=== PATIENT | female | born 1970 | race Caucasian/White ===

== ENCOUNTER → 2016-11-16 | Outpatient (CLI) | payer OTHER ==
--- NOTE | 2016-11-16 12:11 | Diagnostic Imaging Report ---
PROCEDURE: US Thyroid. TECHNIQUE: Multiple real-time grayscale images were obtained of the thyroid in various projections. INDICATION: Enlarged thyroid. FINDINGS: The thyroid gland is heterogeneous with hypervascularity seen. There are nodules; the largest is 1.4 x 1.0 x 1.8 cm in the lower aspect of the right thyroid lobe with internal vascularity seen. Superior to it on the right side, there is a nodule associated with calcification measuring 0.8 x 0.7 x 0.8 cm. A nodule in the isthmus measuring 2.1 x 0.9 x 2.3 cm is also seen. IMPRESSION: Heterogeneous enlarged thyroid gland with multiple nodules seen likely related to multinodular goiter. Six month followup to reevaluate the nodules recommended. Dictated by: Dictated on workstation # [id number]
== END ==
LOC: RAD 10:03
PROVIDERS: ATTEND Nurse Practitioner Family
DX: E04.9 Nontoxic goiter, unspecified (principal)
CPT/HCPCS: 76536

== ENCOUNTER → 2017-05-17 | Outpatient (CLI) | payer OTHER ==
--- NOTE | 2017-05-17 12:10 | Diagnostic Imaging Report ---
PROCEDURE: US Thyroid. TECHNIQUE: Multiple real-time grayscale images were obtained of the thyroid in various projections. INDICATION: Thyroid nodules. Comparison with November 16, 2016. FINDINGS: Both lobes of thyroid are very heterogeneous and hypervascular in nature. Right lobe measures 5.2 x 1.8 x 1.5 cm. There are 2 nodules. Dominant nodule is inferior measuring 1.9 x 1.3 x 0.9 cm. Smaller calcified nodule in the upper portion measures 6 x 5 x 6 mm. Left lobe measures 5.8 x 2.3 x 2 cm. There is a nodule medially in the left lobe measuring 2.3 x 0.8 x 2.3 cm. IMPRESSION: Bilateral thyroid nodules which are stable in appearance when compared with 11/16/2016. Dictated by: Dictated on workstation # [id number]
== END ==
LOC: RAD 11:02
PROVIDERS: ATTEND Nurse Practitioner Family
DX: E04.2 Nontoxic multinodular goiter (principal)
CPT/HCPCS: 76536

== ENCOUNTER → 2018-05-30 | Outpatient (CLI) | payer OTHER ==
--- NOTE | 2018-05-30 08:54 | Diagnostic Imaging Report ---
PROCEDURE: US Thyroid. TECHNIQUE: Multiple real-time grayscale images were obtained of the thyroid in various projections. Followup thyroid nodule. Comparison is made with prior thyroid ultrasound from 05/17/2017. The right lobe of the thyroid measures 5.2 x 1.8 x 1.5 cm and left lobe measures 5.5 x 2.2 x 2.2 cm. Marked parenchymal heterogeneity is again noted. Bilateral thyroid nodules are again seen. The nodule in the midline at the isthmus measures 1.7 x 0.9 x 1.6 cm compared with 2.3 x 0.8 cm. A solid nodule in the right lobe lower pole measures 2.3 x 0.8 x 1.5 cm compared with 1.9 x 1.3 x 0.9 cm. Partially calcified nodule upper pole right lobe measures 0.7 x 1.0 cm compared with 0.5 x 0.6 cm. No other nodules are seen. IMPRESSION: Thyroid nodules, as described. Midline nodule has decreased slightly in size. Right lower pole nodule has increased slightly in size. No new abnormality seen. Continued followup is recommended. Dictated by: Dictated on workstation # [id number]
== END ==
LOC: RAD 07:57
PROVIDERS: ATTEND Nurse Practitioner Family
DX: E04.2 Nontoxic multinodular goiter (principal)
CPT/HCPCS: 76536

== ENCOUNTER 2018-08-12 09:54 | Outpatient (CLI) | payer OTHER ==
[~2018-08-12] VITALS: Ht 165.1 cm; Wt 75.7 kg
[2018-08-12] MEDS ORDERED: LEVO112T55 PO (09:56)
[2018-08-12] MEDS ORDERED: LISI10TA2 PO (09:56)
[2018-08-12] MEDS ORDERED: AMIT50TA3 PO (09:56)
== END 2018-08-12 10:12 | disposition home or self-care (01) ==
LOC: PREOP 09:54
PROVIDERS: ATTEND Surgery
DX: Z01.818 Encounter for other preprocedural examination (principal)

== ENCOUNTER 2018-08-15 05:59 | Day surgery (SDC) | payer OTHER ==
[~2018-08-15] VITALS: Ht 165.1 cm; Wt 75.7 kg
[~2018-08-15 05:59] MED LIST: AMIT50TA3 PO; LEVO112T55 PO; LISI10TA2 PO
--- OUTSIDE RECORDS SUMMARY | 2018-08-15 06:03 | XMS REPORT | CCD ---
Author Author Marie Flores MD, [facility] Address [address] [place] [address] Phone Care Team Providers Care Hog Killer Name Role Phone PP Unavailable CCM Unavailable Summary Purpose Interface Exchange Insurance Providers Payer name Policy type / Coverage type Covered alliance party ID Effective Begin Date Effective End Date [employer] [id number] Unknown Unknown Family History Family History data not found Social History Social History Element Codes Description Effective Dates Marital status Unknown carolynn 11/09/2016 Number of children Unknown 1 11/09/2016 Employment Unknown Currently employed 11/09/[address]: 2807871 Former smoker quit in 200311/09/[address]: 873604129 Never drinks alcohol 11/09/2016 Allergies, Adverse Reactions, Alerts Allergies, Adverse Reactions, Alerts data not found Past Medical History Illness Codes Condition Status Onset Date Resolved Date Essential (primary) hypertension ICD-9: 401.9 ICD-10: I10 Active 10/11/2017 Unknown Hypertension Unknown Active 10/11/2017 Unknown Gastro-esophageal reflux disease without esophagitis ICD-9: 530.81 ICD-10: K21.9 Active 10/11/2017 Unknown Hypothyroidism, unspecified ICD-9: 244.9 ICD-10: E03.9 Active 12/07/2016 Unknown Headache ICD-9: 784.0 ICD-10: R51 Active 11/08/2016 Unknown Cardiac murmur, unspecified ICD-9: 785.2 ICD-10: R01.1 Active 11/08/2016 Unknown Hypothryroidism Unknown Active 03/20/2017 Unknown Other allergic rhinitis ICD-9: 477.8 ICD-10: J30.89 Active 02/07/2017 Unknown Other acute sinusitis ICD-9: 461.8 ICD-10: J01.80 Active 02/07/2017 Unknown Nontoxic goiter, unspecified ICD-9: 240.9 ICD-10: E04.9 Active 11/18/2016 Unknown Elevated blood-pressure reading, without diagnosis of hypertension ICD-9: 796.2 ICD-10: R03.0 Active 11/15/2016 Unknown Problems Condition Codes Effective Dates Condition Status Essential (primary) hypertension ICD-9: 401.9 ICD-10: I10 10/11/2017 Active Hypertension Unknown 10/11/2017 Active Gastro-esophageal reflux disease without esophagitis ICD-9: 530.81 ICD-10: K21.9 10/11/2017 Active Hypothyroidism, unspecified ICD-9: 244.9 ICD-10: E03.9 12/07/2016 Active Headache ICD-9: 784.0 ICD-10: R51 11/08/2016 Active Cardiac murmur, unspecified ICD-9: 785.2 ICD-10: R01.1 11/08/2016 Active Hypothryroidism Unknown 03/20/2017 Active Other allergic rhinitis ICD-9: 477.8 ICD-10: J30.89 02/07/2017 Active Other acute sinusitis ICD-9: 461.8 ICD-10: J01.80 02/07/2017 Active Nontoxic goiter, unspecified ICD-9: 240.9 ICD-10: E04.9 11/18/2016 Active Elevated blood-pressure reading, without diagnosis of hypertension ICD-9: 796.2 ICD-10: R03.0 11/15/2016 Active Medications Medication Codes Instructions Start Date Stop Date Status Fill Instructions amitriptyline 50 mg tablet RxNorm: 279504 TAKE ONE TABLET BY MOUTH EVERY NIGHT AT BEDTIME 11/04/2017 10/29/2018 Active Synthroid 88 mcg tablet RxNorm: 235838 1 Tablet(s) PO daily 01/12/2018 Active Synthroid 88 mcg tablet RxNorm: 139120 1 Tablet(s) PO daily 10/14/2017 Inactive Imitrex 25 mg tablet RxNorm: 805003 TAKE ONE TABLET BY MOUTH DAILY NEEDED, MAY REPEAT ONCE 2 HOURS AFTER THE FIRST DOSE IF NEEDED 201612/20/2017 Active amitriptyline 50 mg tablet RxNorm: 644865 1 Tablet(s) PO QHS 10/30/2017 Inactive Flonase Allergy Relief 50 mcg/actuation nasal spray, suspension RxNorm: 2064599 PLACE 1 SPRAY IN EACH NOSTRIL TWO TIMES A DAY 07/31/2017 09/28/2017 Inactive Synthroid 75 mcg tablet RxNorm: 734129 1 Tablet(s) PO daily 07/09/2017 Inactive Synthroid 75 mcg tablet RxNorm: 117868 1 Tablet(s) PO daily 10/14/2017 Inactive amitriptyline 25 mg tablet RxNorm: 175370 1 Tablet(s) PO QHS 08/01/2017 Inactive amitriptyline 25 mg tablet RxNorm: 997044 1 Tablet(s) PO QHS 06/20/2017 Inactive Synthroid 50 mcg tablet RxNorm: 383735 1 Tablet(s) PO daily 07/09/2017 Inactive Imitrex 25 mg tablet RxNorm: 797933 TAKE ONE TABLET BY MOUTH DAILY NEEDED, MAY REPEAT ONCE 2 HOURS AFTER THE FIRST DOSE IF NEEDED 201606/05/2017 Inactive Synthroid 50 mcg tablet RxNorm: 008898 1 Tablet(s) PO daily 03/20/2017 Inactive Synthroid 50 mcg tablet RxNorm: 679906 1 Tablet(s) PO daily 05/20/2017 Inactive Flonase Allergy Relief 50 mcg/actuation nasal spray, suspension RxNorm: 7758132 1 Ryde NASAL BID 02/12/20172016 Inactive Kenalog 40 mg/mL suspension for injection RxNorm: 6827479 Milliliter(s) Inj 02/12/2017 02/12/2017 Inactive Zyrtec 10 mg tablet RxNorm: 5926855 1 Tablet(s) PO daily 02/1202/11/2017 Inactive Zyrtec 10 mg tablet RxNorm: 0074445 1 Tablet(s) PO daily 02/1203/13/2017 Inactive amoxicillin 500 mg capsule RxNorm: 617449 1 Capsule(s) PO TID 02/07/2017 02/13/2017 Inactive Imitrex 25 mg tablet RxNorm: 715702 1 Tablet(s) PO daily as needed may repeat dose once 2 hours after the first dose if needed 02/07/2017 05/02/2017 Inactive Synthroid 25 mcg tablet RxNorm: 996219 1 Tablet(s) PO daily 11/21/2016 Inactive Synthroid 25 mcg tablet RxNorm: 439964 1 Tablet(s) PO daily 03/20/2017 Inactive Vitamin C 1,000 mg tablet RxNorm: 441615 1 Tablet(s) PO daily No Start Date Active Multivitamins FC tablet RxNorm: 1 Tablet(s) PO daily No Start Date Active Flonase Allergy Relief 50 mcg/actuation nasal spray, suspension RxNorm: 6166754 1 Ryde NASAL BID No Start Date 2016 Inactive Medication Administered Medication Codes Instructions Start Date Status Kenalog 40 mg/mL suspension for injection RxNorm: 1264264 Milliliter 02/12/2017 No longer Active Immunizations No Immunization data Assessments Condition Codes Effective Dates Essential (primary) hypertension ICD-10: I10 ICD-9: 401.9 11/08/2017 Hypothyroidism, unspecified ICD-10: E03.9 ICD-9: 244.9 10/11/2017 Gastro-esophageal reflux disease without esophagitis ICD-10 : K21.9 ICD-9: 530.81 10/11/2017 Headache ICD-10: R51 ICD-9: 784.0 07/19/2017 Cardiac murmur, unspecified ICD-10: R01.1 ICD-9: 785.2 06/07/2017 Other allergic rhinitis ICD-10: J30.89 ICD-9: 477.8 02/12/2017 Other acute sinusitis ICD-10: J01.80 ICD-9: 461.8 02/07/2017 Nontoxic goiter, unspecified ICD-10: E04.9 ICD-9: 240.9 11/19/2016 Elevated blood-pressure reading, without diagnosis of hypertension ICD-10: R03.0 ICD-9: 796.2 11/16/2016 Reason For Visit Reason For Visit Effective Dates Notes hypertension 11/08/2017 gastroesophageal reflux 10/11/2017 headache 07/19/2017 headache 06/07/2017 sinus congestion 02/07/2017 headache 12/07/2016 headache 11/09/2016 Results Observation Observation Code Item Item Code Result Date Tsh Ord6 hTSH II 5.88 uIU/mL 10/11/2017 Free T4 Yms399 FREE T4 0.77 ng/dL 10/11/2017 Free T4 Itv882 FREE T4 0.71 ng/dL 06/28/2017 Tsh Ord6 hTSH II 5.37 uIU/mL 06/28/2017 Tsh Ord6 hTSH II 10.22 uIU/mL 03/21/2017 Free T4 Oqx085 FREE T4 0.63 ng/dL 03/21/2017 Free T4 Rzn593 FREE T4 0.57 ng/dL 11/19/2016 Cbc With Differential Ord2 WBC 6.93 K/ul 11/16/2016 Cbc With Differential Ord2 RBC 4.59 M/ul 11/16/2016 Cbc With Differential Ord2 HGB 14.2 g/dl 11/16/2016 Cbc With Differential Ord2 HCT 42.5 % 11/16/2016 Cbc With Differential Ord2 Neut% 55.5 % 11/16/2016 Cbc With Differential Ord2 MCV 92.6 fl 11/16/2016 Cbc With Differential Ord2 Lymph% 33.9 % 11/16/2016 Cbc With Differential Ord2 [place]% 8.4 % 11/16/2016 Cbc With Differential Ord2 MCH 30.9 pg 11/16/2016 Cbc With Differential Ord2 MCHC 33.4 pg 11/16/2016 Cbc With Differential Ord2 Eos% 1.9 % 11/16/2016 Cbc With Differential Ord2 PLT 262 K/ul 11/16/2016 Cbc With Differential Ord2 Baso% 0.3 % 11/16/2016 Cbc With Differential Ord2 Neut ABS# 3.85 K/ul 11/16/2016 Cbc With Differential Ord2 RDW 13.6 % 11/16/2016 Cbc With Differential Ord2 Lymph ABS# 2.35 K/ul 11/16/2016 Cbc With Differential Ord2 [place] ABS# 0.6 K/ul 11/16/2016 Cbc With Differential Ord2 Eos ABS# 0.1 K/ul 11/16/2016 Cbc With Differential Ord2 Baso ABS# 0.0 K/ul 11/16/2016 Comp Metabolic Tux742 NA 137 mEq/L 11/16/2016 Comp Metabolic Bra697 K 4.1 mEq/L 11/16/2016 Comp Metabolic Jet318 CL 106 mEq/L 11/16/2016 Comp Metabolic Vhf946 CO2 22.0 mEq/L 11/16/2016 Comp Metabolic Xkd374 ANION GAP 13 11/16/2016 Comp Metabolic Dev906 GLUCOSE 94 mg/dL 11/16/2016 Comp Metabolic Thz146 Creat 0.9 mg/dL 11/16/2016 Comp Metabolic Zmh422 eGFR 72 ml/min/1.73m2 11/16/2016 Comp Metabolic Cuh032 BUN 21 mg/dL 11/16/2016 Comp Metabolic Agc967 B/C Ratio 23.6 Ratio 11/16/2016 Comp Metabolic Msu543 CALCIUM 9.5 mg/dL 11/16/2016 Comp Metabolic Bjl638 ALK PHOS 44 U/L 11/16/2016 Comp Metabolic Zlc810 AST(SGOT) 13 U/L 11/16/2016 Comp Metabolic Oca938 ALT(SGPT) 12 U/L 11/16/2016 Comp Metabolic Ggs039 BILI T 0.5 mg/dL 11/16/2016 Comp Metabolic Xgs934 ALBUMIN 4.3 g/dL 11/16/2016 Comp Metabolic Arp943 TPRO 6.8 g/dL 11/16/2016 Comp Metabolic Pdi166 GLOB 2.5 g/dL 11/16/2016 Comp Metabolic Lsd436 A/G Ratio 1.7 Ratio 11/16/2016 Comp Metabolic Otu833 Osmo 277 mOsmo 11/16/2016 Lipid Ord30 CHOL 191 mg/dL 11/16/2016 Lipid Ord30 HDL 52.0 mg/dl 11/16/2016 Lipid Ord30 TRIG 60 mg/dL 11/16/2016 Lipid Ord30 LDL 127 mg/dL 11/16/2016 Lipid Ord30 C/HDL 3.7 Ratio 11/16/2016 Tsh Ord6 hTSH II 7.58 uIU/mL 11/16/2016 Review of Systems System Result Effective Dates Eyes No eye pain 11/08/2017 Eyes No vision change 11/08/2017 Cardiovascular No chest pain/pressure 09/2018 Cardiovascular No dyspnea 11/08/2017 Respiratory No chest congestion 2017 Respiratory No cough 11/08/2017 Respiratory No dyspnea 11/08/2017 Gastrointestinal No constipation 2017 Gastrointestinal gastroesophageal reflux 11/08/2017 Gastrointestinal No nausea 11/08/2017 Gastrointestinal No vomiting 11/08/2017 Musculoskeletal No joint complaint 2017 Dermatologic No rash 11/08/2017 Neurologic No alteration of consciousness 11/08/2017 Neurologic No mental status change 2017 Constitutional No recent illness 2017 Constitutional No chills 11/08/2017 Constitutional No diaphoresis 11/08/2017 Constitutional No fever 11/08/2017 Ears/Nose/Throat/Neck No nasal discharge 11/08/2017 Cardiovascular No palpitations 2017 Gastrointestinal No abdominal pain 2017 Gastrointestinal No diarrhea 11/08/2017 Constitutional No recent illness 2016 Constitutional No anorexia 10/11/2017 Constitutional No night sweats 2016 Constitutional No chills 10/11/2017 Constitutional No diaphoresis 10/11/2017 Constitutional No fatigue 10/11/2017 Constitutional No fever 10/11/2017 Constitutional No insomnia 10/11/2017 Constitutional No malaise 10/11/2017 Constitutional No weight loss 10/11/2017 Constitutional weight gain 10/11/2017 Constitutional No obesity 10/11/2017 Eyes No eye pain 10/11/2017 Eyes No vision change 10/11/2017 Ears/Nose/Throat/Neck No dizziness 2016 Ears/Nose/Throat/Neck No headache 2016 Cardiovascular No chest pain/pressure Cardiovascular No dyspnea 10/11/2017 Cardiovascular No exercise intolerance Cardiovascular No palpitations 2016 Respiratory No chest congestion 2016 Respiratory No cough 10/11/2017 Respiratory No dyspnea 10/11/2017 Gastrointestinal No abdominal pain 2016 Gastrointestinal No anorexia 10/11/2017 Gastrointestinal No constipation 2016 Gastrointestinal No nausea 10/11/2017 Gastrointestinal No vomiting 10/11/2017 Genitourinary/Nephrology No anuria/oliguria 10/11/2017 Genitourinary/Nephrology No dysuria 10/11 Musculoskeletal No joint complaint 2016 Dermatologic No rash 10/11/2017 Dermatologic No sores 10/11/2017 Neurologic No alteration of consciousness 10/11/2017 Neurologic No aphasia 10/11/2017 Neurologic No dizziness 10/11/2017 Neurologic No mental status change 2016 Psychiatric No anxiety 10/11/2017 Psychiatric No depression 10/11/2017 Psychiatric No disturbances of consciousness 10/11/2017 Endocrine No polyuria 10/11/2017 Endocrine No sweating 10/11/2017 Endocrine No weakness 10/11/2017 Endocrine No weight gain 10/11/2017 Hematologic/Lymphatic No abnormal ecchymoses 10/11/2017 Hematologic/Lymphatic No abnormal bleeding and bruising 10/11/2017 Allergy/Immunology No anaphylactoid reaction 10/11/2017 Allergy/Immunology No food allergy 2016 Gastrointestinal gastroesophageal reflux 10/11/2017 Constitutional No night sweats 2016 Constitutional No anorexia 07/19/2017 Constitutional No recent illness 2016 Constitutional No chills 07/19/2017 Constitutional No diaphoresis 07/19/2017 Constitutional No fatigue 07/19/2017 Constitutional No fever 07/19/2017 Constitutional No insomnia 07/19/2017 Constitutional No malaise 07/19/2017 Constitutional No weight loss 07/19/2017 Constitutional No weight gain 07/19/2017 Musculoskeletal myalgias 07/19/2017 Ears/Nose/Throat/Neck No dizziness 2016 Ears/Nose/Throat/Neck No headache 2016 Cardiovascular No chest pain/pressure Cardiovascular No dyspnea 07/19/2017 Cardiovascular No edema 07/19/2017 Respiratory No cough 07/19/2017 Dermatologic No rash 07/19/2017 Dermatologic No sores 07/19/2017 Neurologic No alteration of consciousness 07/19/2017 Constitutional No recent illness 2016 Constitutional No anorexia 06/07/2017 Constitutional No night sweats 2016 Constitutional No chills 06/07/2017 Constitutional No diaphoresis 06/07/2017 Constitutional No fatigue 06/07/2017 Constitutional No fever 06/07/2017 Constitutional No malaise 06/07/2017 Constitutional No weight loss 06/07/2017 Constitutional No weight gain 06/07/2017 Constitutional No obesity 06/07/2017 Eyes No eye pain 06/07/2017 Eyes No vision change 06/07/2017 Ears/Nose/Throat/Neck No dizziness 2016 Ears/Nose/Throat/Neck headache 2016 Cardiovascular No dyspnea 06/07/2017 Cardiovascular No exercise intolerance Cardiovascular No palpitations 2016 Respiratory No chest congestion 2016 Respiratory No cough 06/07/2017 Respiratory No dyspnea 06/07/2017 Gastrointestinal No abdominal pain 2016 Gastrointestinal No anorexia 06/07/2017 Gastrointestinal No constipation 2016 Gastrointestinal No nausea 06/07/2017 Gastrointestinal No vomiting 06/07/2017 Genitourinary/Nephrology No anuria/oliguria 06/07/2017 Genitourinary/Nephrology No dysuria 06/07 Dermatologic No rash 06/07/2017 Dermatologic No sores 06/07/2017 Neurologic No alteration of consciousness 06/07/2017 Neurologic No aphasia 06/07/2017 Neurologic No dizziness 06/07/2017 Neurologic No mental status change 2016 Psychiatric No anxiety 06/07/2017 Psychiatric No depression 06/07/2017 Psychiatric No disturbances of consciousness 06/07/2017 Endocrine No polyuria 06/07/2017 Endocrine No sweating 06/07/2017 Endocrine No weakness 06/07/2017 Endocrine No weight gain 06/07/2017 Hematologic/Lymphatic No abnormal ecchymoses 06/07/2017 Hematologic/Lymphatic No abnormal bleeding and bruising 06/07/2017 Allergy/Immunology No anaphylactoid reaction 06/07/2017 Allergy/Immunology No food allergy 2016 Constitutional No insomnia 06/07/2017 Cardiovascular No chest pain/pressure 08/2017 Musculoskeletal No joint complaint 2016 Constitutional recent illness 02/07/2017 Constitutional No chills 02/07/2017 Constitutional No diaphoresis 02/07/2017 Constitutional No fever 02/07/2017 Eyes No eye erythema 02/07/2017 Ears/Nose/Throat/Neck nasal allergies Ears/Nose/Throat/Neck nasal discharge Ears/Nose/Throat/Neck postnasal drip Ears/Nose/Throat/Neck sinus congestion Ears/Nose/Throat/Neck sore throat 2016 Cardiovascular No chest pain/pressure Cardiovascular No dyspnea 02/07/2017 Respiratory No chest congestion 2016 Respiratory No dyspnea 02/07/2017 Gastrointestinal No abdominal pain 2016 Gastrointestinal No constipation 2016 Gastrointestinal No diarrhea 02/07/2017 Gastrointestinal No nausea 02/07/2017 Gastrointestinal No vomiting 02/07/2017 Dermatologic No rash 02/07/2017 Neurologic No alteration of consciousness 02/07/2017 Neurologic No mental status change 2016 Constitutional No recent illness 2016 Constitutional No anorexia 12/07/2016 Constitutional No night sweats 2016 Constitutional No chills 12/07/2016 Constitutional No diaphoresis 12/07/2016 Constitutional No fatigue 12/07/2016 Constitutional No fever 12/07/2016 Constitutional insomnia 12/07/2016 Constitutional No malaise 12/07/2016 Constitutional No weight loss 12/07/2016 Constitutional No weight gain 12/07/2016 Constitutional No obesity 12/07/2016 Eyes No eye pain 12/07/2016 Eyes No vision change 12/07/2016 Ears/Nose/Throat/Neck No dizziness 2016 Ears/Nose/Throat/Neck headache 2016 Cardiovascular chest pain/pressure 2016 Cardiovascular No dyspnea 12/07/2016 Cardiovascular No exercise intolerance Cardiovascular fatigue 12/07/2016 Cardiovascular No palpitations 2016 Respiratory chest tightness 12/07/2016 Respiratory No chest congestion 2016 Respiratory No cough 12/07/2016 Respiratory No dyspnea 12/07/2016 Gastrointestinal No constipation 2016 Gastrointestinal No anorexia 12/07/2016 Gastrointestinal No abdominal pain 2016 Gastrointestinal No nausea 12/07/2016 Gastrointestinal No vomiting 12/07/2016 Genitourinary/Nephrology No anuria/oliguria 12/07/2016 Genitourinary/Nephrology No dysuria 12/07 Musculoskeletal No stiffness 12/07/2016 Musculoskeletal No swelling 12/07/2016 Musculoskeletal arthralgia(s) 12/07/2016 Musculoskeletal No back pain 12/07/2016 Musculoskeletal No bone fracture 2016 Musculoskeletal No bone pain 12/07/2016 Dermatologic No rash 12/07/2016 Dermatologic No sores 12/07/2016 Neurologic No dizziness 12/07/2016 Neurologic No aphasia 12/07/2016 Neurologic No alteration of consciousness 12/07/2016 Neurologic No mental status change 2016 Psychiatric No anxiety 12/07/2016 Psychiatric No disturbances of consciousness 12/07/2016 Psychiatric No depression 12/07/2016 Hematologic/Lymphatic No abnormal ecchymoses 12/07/2016 Hematologic/Lymphatic No abnormal bleeding and bruising 12/07/2016 Endocrine No polyuria 12/07/2016 Endocrine No sweating 12/07/2016 Endocrine No weakness 12/07/2016 Endocrine No weight gain 12/07/2016 Allergy/Immunology No anaphylactoid reaction 12/07/2016 Allergy/Immunology No food allergy 2016 Constitutional No recent illness 2016 Constitutional No anorexia 11/09/2016 Constitutional No night sweats 2016 Constitutional No chills 11/09/2016 Constitutional No diaphoresis 11/09/2016 Constitutional fatigue 11/09/2016 Constitutional No fever 11/09/2016 Constitutional insomnia 11/09/2016 Constitutional No malaise 11/09/2016 Constitutional No weight loss 11/09/2016 Constitutional weight gain 11/09/2016 Constitutional No obesity 11/09/2016 Eyes No blindness 11/09/2016 Eyes No eye discharge 11/09/2016 Eyes No eye erythema 11/09/2016 Eyes No eye floaters 11/09/2016 Eyes No eye foreign body 11/09/2016 Eyes eye pain 11/09/2016 Eyes photophobia 11/09/2016 Ears/Nose/Throat/Neck dizziness 2016 Ears/Nose/Throat/Neck headache 2016 Ears/Nose/Throat/Neck nasal allergies Ears/Nose/Throat/Neck No sinus congestion 11/09/2016 Ears/Nose/Throat/Neck No tinnitus 2016 Cardiovascular chest pain/pressure 2016 Cardiovascular dyspnea 11/09/2016 Cardiovascular No palpitations 2016 Respiratory No cough 11/09/2016 Respiratory No cigarette smoking 2016 Gastrointestinal nausea 11/09/2016 Gastrointestinal vomiting 11/09/2016 Genitourinary/Nephrology No anuria/oliguria 11/09/2016 Genitourinary/Nephrology No dysuria 11/09 Musculoskeletal No stiffness 11/09/2016 Musculoskeletal No swelling 11/09/2016 Musculoskeletal No arthralgia(s) 2016 Dermatologic No rash 11/09/2016 Dermatologic No sores 11/09/2016 Neurologic dizziness 11/09/2016 Neurologic headache 11/09/2016 Neurologic No mental status change 2016 Psychiatric No anxiety 11/09/2016 Psychiatric No depression 11/09/2016 Hematologic/Lymphatic No abnormal ecchymoses 11/09/2016 Hematologic/Lymphatic No abnormal bleeding and bruising 11/09/2016 Neurologic No alteration of consciousness 11/09/2016 Neurologic No aphasia 11/09/2016 Neurologic No ataxia 11/09/2016 Neurologic No dyskinesia or tremor 2016 Neurologic No gait abnormality 2016 Neurologic No hearing loss 11/09/2016 Neurologic No memory loss 11/09/2016 Neurologic No pain, back 11/09/2016 Neurologic No pain, facial 11/09/2016 Neurologic No pain, generalized 2016 Neurologic No pain, limb 11/09/2016 Neurologic No neck pain 11/09/2016 Neurologic No paresis 11/09/2016 Neurologic No paresthesia 11/09/2016 Neurologic seizure 11/09/2016 Neurologic No spasms/spasticity 2016 Neurologic No speech difficulties 2016 Neurologic No syncope 11/09/2016 Neurologic No tinnitus 11/09/2016 Neurologic No vertigo 11/09/2016 Neurologic No vision change 11/09/2016 Neurologic No weakness 11/09/2016 Endocrine No dry or coarse skin 2016 Endocrine No weakness 11/09/2016 Eyes No eye tearing 11/09/2016 Eyes No eye trauma 11/09/2016 Eyes No eyelid edema 11/09/2016 Eyes No eyelid erythema 11/09/2016 Eyes No eyelid pain 11/09/2016 Eyes No vision change 11/09/2016 Eyes No amblyopia 11/09/2016 Eyes No cataract 11/09/2016 Eyes No glaucoma 11/09/2016 Eyes No macular degeneration 11/09/2016 Physical Exam Exam Name System Name Item Name Status Result Effective Dates Notes Full Exam - General 1994 Constitutional general appearance Development: well developed 11/08/2017 None Full Exam - General 1994 Constitutional general appearance Development: appears stated age 0111/08/2017 None Full Exam - General 1994 Eyes conjunctiva /eyelids Overall: conjunctiva clear 11/08/2017 None Full Exam - General 1994 Eyes conjunctiva /eyelids Overall: cornea clear 11/08/2017 None Full Exam - General 1994 Eyes conjunctiva /eyelids Overall: eyelids normal 11/08/2017 None Full Exam - General 1994 Eyes pupils and irises Overall: pupils equal, round, reactive to light and accomodation 11/08/2017 None Full Exam - General 1994 Ears/Nose/Throat external ear Overall: normal appearance 11/08/2017 None Full Exam - General 1994 Ears/Nose/Throat external ear Overall: no masses 11/08/2017 None Full Exam - General 1994 Ears/Nose/Throat external ear Overall: normal mastoids 11/08/2017 None Full Exam - General 1994 Ears/Nose/Throat external nose Overall: benign appearance 11/08/2017 None Full Exam - General 1994 Ears/Nose/Throat external nose Overall: no masses 11/08/2017 None Full Exam - General 1994 Ears/Nose/Throat external nose Overall: non-tender 11/08/2017 None Full Exam - General 1994 Ears/Nose/Throat otoscopic exam Overall: external auditory canals clear 11/08/2017 None Full Exam - General 1994 Ears/Nose/Throat otoscopic exam Overall: tympanic membranes clear 11/08/2017 None Full Exam - General 1994 Ears/Nose/Throat lips/teeth/gingiva Overall: benign lips 11/08/2017 None Full Exam - General 1994 Ears/Nose/Throat oral cavity/pharynx/larynx Overall: oral mucosa clear 11/08/2017 None Full Exam - General 1994 Respiratory auscultation Overall: breath sounds clear bilaterally 11/08/2017 None Full Exam - General 1994 Respiratory respiratory effort/rhythm Overall: no retractions 11/08/2017 None Full Exam - General 1994 Respiratory respiratory effort/rhythm Overall: normal rate 11/08/2017 None Full Exam - General 1994 Cardiovascular auscultation of heart Overall: regular rate 11/08/2017 None Full Exam - General 1994 Cardiovascular auscultation of heart Overall: normal heart sounds 11/08/2017 None Full Exam - General 1994 Cardiovascular auscultation of heart Overall: no murmurs 11/08/2017 None Full Exam - General 1994 Lymphatic neck nodes Overall: anterior cervical chain benign 11/08/2017 None Full Exam - General 1994 Lymphatic neck nodes Overall: posterior cervical chain benign 11/08/2017 None Full Exam - General 1994 Musculoskeletal gait and station Overall: normal gait 11/08/2017 None Full Exam - General 1994 Musculoskeletal gait and station Overall: normal station 11/08/2017 None Full Exam - General 1994 Musculoskeletal head and neck Overall: head atraumatic 11/08/2017 None Full Exam - General 1994 Musculoskeletal head and neck Overall: TMJ benign 11/08/2017 None Full Exam - General 1994 Musculoskeletal head and neck Overall: cervical spine benign 11/08/2017 None Full Exam - General 1994 Neurologic gait Overall: no ataxia, no unsteadiness 11/08/2017 None Full Exam - General 1994 Neurologic motor Overall: normal bulk, tone 11/08/2017 None Full Exam - General 1994 Psychiatric orientation/consciousness Overall: oriented to person, place and time 11/08/2017 None Full Exam - General 1994 Psychiatric mood and affect Overall: normal mood and affect 11/08/2017 None Full Exam - General 1994 Psychiatric speech Overall: normal quality, no aphasia 11/08/2017 None Full Exam - General 1994 Psychiatric judgment/insight Overall: judgment and insight intact 11/08/2017 None Full Exam - General 1994 Constitutional general appearance Development: well developed 10/11/2017 None Full Exam - General 1994 Constitutional general appearance Development: appears stated age 1210/11/2017 None Full Exam - General 1994 Eyes conjunctiva /eyelids Overall: conjunctiva clear 10/11/2017 None Full Exam - General 1994 Eyes conjunctiva /eyelids Overall: cornea clear 10/11/2017 None Full Exam - General 1994 Eyes conjunctiva /eyelids Overall: eyelids normal 10/11/2017 None Full Exam - General 1994 Eyes pupils and irises Overall: pupils equal, round, reactive to light and accomodation 10/11/2017 None Full Exam - General 1994 Ears/Nose/Throat external ear Overall: normal appearance 10/11/2017 None Full Exam - General 1994 Ears/Nose/Throat external ear Overall: no masses 10/11/2017 None Full Exam - General 1994 Ears/Nose/Throat external ear Overall: normal mastoids 10/11/2017 None Full Exam - General 1994 Ears/Nose/Throat external nose Overall: benign appearance 10/11/2017 None Full Exam - General 1994 Ears/Nose/Throat external nose Overall: no masses 10/11/2017 None Full Exam - General 1994 Ears/Nose/Throat external nose Overall: non-tender 10/11/2017 None Full Exam - General 1994 Ears/Nose/Throat otoscopic exam Overall: external auditory canals clear 10/11/2017 None Full Exam - General 1994 Ears/Nose/Throat otoscopic exam Overall: tympanic membranes clear 10/11/2017 None Full Exam - General 1994 Ears/Nose/Throat lips/teeth/gingiva Overall: benign lips 10/11/2017 None Full Exam - General 1994 Ears/Nose/Throat oral cavity/pharynx/larynx Overall: oral mucosa clear 10/11/2017 None Full Exam - General 1994 Neck thyroid Consistency: nodular None Full Exam - General 1994 Neck thyroid Palpation: nontender None Full Exam - General 1994 Respiratory auscultation Overall: breath sounds clear bilaterally 10/11/2017 None Full Exam - General 1994 Respiratory respiratory effort/rhythm Overall: no retractions 10/11/2017 None Full Exam - General 1994 Respiratory respiratory effort/rhythm Overall: normal rate 10/11/2017 None Full Exam - General 1994 Cardiovascular auscultation of heart Overall: regular rate 10/11/2017 None Full Exam - General 1994 Cardiovascular auscultation of heart Overall: normal heart sounds 10/11/2017 None Full Exam - General 1994 Cardiovascular auscultation of heart Overall: no murmurs 10/11/2017 None Full Exam - General 1994 Abdomen abdominal exam Overall: no tenderness 10/11/2017 None Full Exam - General 1994 Abdomen abdominal exam Overall: normal bowel sounds 10/11/2017 None Full Exam - General 1994 Lymphatic neck nodes Overall: anterior cervical chain benign 10/11/2017 None Full Exam - General 1994 Lymphatic neck nodes Overall: posterior cervical chain benign 10/11/2017 None Full Exam - General 1994 Musculoskeletal gait and station Overall: normal gait 10/11/2017 None Full Exam - General 1994 Musculoskeletal gait and station Overall: normal station 10/11/2017 None Full Exam - General 1994 Musculoskeletal head and neck Overall: head atraumatic 10/11/2017 None Full Exam - General 1994 Musculoskeletal head and neck Overall: TMJ benign 10/11/2017 None Full Exam - General 1994 Musculoskeletal head and neck Overall: cervical spine benign 10/11/2017 None Full Exam - General 1994 Integument inspection of skin Overall: no rash, lesions 10/11/2017 None Full Exam - General 1994 Neurologic gait Overall: no ataxia, no unsteadiness 10/11/2017 None Full Exam - General 1994 Neurologic motor Overall: normal bulk, tone 10/11/2017 None Full Exam - General 1994 Psychiatric orientation/consciousness Overall: oriented to person, place and time 10/11/2017 None Full Exam - General 1994 Psychiatric mood and affect Overall: normal mood and affect 10/11/2017 None Full Exam - General 1994 Psychiatric speech Overall: normal quality, no aphasia 10/11/2017 None Full Exam - General 1994 Psychiatric judgment/insight Overall: judgment and insight intact 10/11/2017 None Full Exam - General 1994 Constitutional general appearance Development: well developed 07/19/2017 None Full Exam - General 1994 Constitutional general appearance Development: appears stated age 0907/19/2017 None Full Exam - General 1994 Eyes conjunctiva /eyelids Overall: conjunctiva clear 07/19/2017 None Full Exam - General 1994 Eyes conjunctiva /eyelids Overall: cornea clear 07/19/2017 None Full Exam - General 1994 Eyes conjunctiva /eyelids Overall: eyelids normal 07/19/2017 None Full Exam - General 1994 Eyes pupils and irises Overall: pupils equal, round, reactive to light and accomodation 07/19/2017 None Full Exam - General 1994 Ears/Nose/Throat external ear Overall: normal appearance 07/19/2017 None Full Exam - General 1994 Ears/Nose/Throat external ear Overall: no masses 07/19/2017 None Full Exam - General 1995 Ears/Nose/Throat external ear Overall: normal mastoids 07/19/2017 None Full Exam - General 1994 Ears/Nose/Throat external nose Overall: benign appearance 07/19/2017 None Full Exam - General 1994 Ears/Nose/Throat external nose Overall: no masses 07/19/2017 None Full Exam - General 1994 Ears/Nose/Throat external nose Overall: non-tender 07/19/2017 None Full Exam - General 1994 Ears/Nose/Throat otoscopic exam Overall: external auditory canals clear 07/19/2017 None Full Exam - General 1994 Ears/Nose/Throat otoscopic exam Overall: tympanic membranes clear 07/19/2017 None Full Exam - General 1994 Ears/Nose/Throat lips/teeth/gingiva Overall: benign lips 07/19/2017 None Full Exam - General 1994 Ears/Nose/Throat oral cavity/pharynx/larynx Overall: oral mucosa clear 07/19/2017 None Full Exam - General 1994 Respiratory auscultation Overall: breath sounds clear bilaterally 07/19/2017 None Full Exam - General 1994 Respiratory respiratory effort/rhythm Overall: no retractions 07/19/2017 None Full Exam - General 1994 Respiratory respiratory effort/rhythm Overall: normal rate 07/19/2017 None Full Exam - General 1994 Cardiovascular auscultation of heart Overall: regular rate 07/19/2017 None Full Exam - General 1994 Cardiovascular auscultation of heart Overall: normal heart sounds 07/19/2017 None Full Exam - General 1994 Cardiovascular auscultation of heart Overall: no murmurs 07/19/2017 None Full Exam - General 1994 Abdomen abdominal exam Overall: no tenderness 07/19/2017 None Full Exam - General 1994 Abdomen abdominal exam Overall: normal bowel sounds 07/19/2017 None Full Exam - General 1994 Lymphatic neck nodes Overall: anterior cervical chain benign 07/19/2017 None Full Exam - General 1994 Lymphatic neck nodes Overall: posterior cervical chain benign 07/19/2017 None Full Exam - General 1994 Musculoskeletal gait and station Overall: normal gait 07/19/2017 None Full Exam - General 1994 Musculoskeletal gait and station Overall: normal station 07/19/2017 None Full Exam - General 1994 Musculoskeletal head and neck Overall: head atraumatic 07/19/2017 None Full Exam - General 1994 Musculoskeletal head and neck Overall: TMJ benign 07/19/2017 None Full Exam - General 1994 Musculoskeletal head and neck Overall: cervical spine benign 07/19/2017 None Full Exam - General 1994 Integument inspection of skin Overall: no rash, lesions 07/19/2017 None Full Exam - General 1994 Neurologic gait Overall: no ataxia, no unsteadiness 07/19/2017 None Full Exam - General 1994 Neurologic motor Overall: normal bulk, tone 07/19/2017 None Full Exam - General 1994 Psychiatric orientation/consciousness Overall: oriented to person, place and time 07/19/2017 None Full Exam - General 1994 Psychiatric mood and affect Overall: normal mood and affect 07/19/2017 None Full Exam - General 1994 Psychiatric speech Overall: normal quality, no aphasia 07/19/2017 None Full Exam - General 1994 Psychiatric judgment/insight Overall: judgment and insight intact 07/19/2017 None Full Exam - General 1994 Constitutional general appearance Development: well developed 06/07/2017 None Full Exam - General 1994 Constitutional general appearance Development: appears stated age 0806/07/2017 None Full Exam - General 1994 Eyes conjunctiva /eyelids Overall: conjunctiva clear 06/07/2017 None Full Exam - General 1994 Eyes conjunctiva /eyelids Overall: cornea clear 06/07/2017 None Full Exam - General 1994 Eyes conjunctiva /eyelids Overall: eyelids normal 06/07/2017 None Full Exam - General 1994 Eyes pupils and irises Overall: pupils equal, round, reactive to light and accomodation 06/07/2017 None Full Exam - General 1994 Ears/Nose/Throat external ear Overall: normal appearance 06/07/2017 None Full Exam - General 1994 Ears/Nose/Throat external ear Overall: no masses 06/07/2017 None Full Exam - General 1994 Ears/Nose/Throat external ear Overall: normal mastoids 06/07/2017 None Full Exam - General 1994 Ears/Nose/Throat external nose Overall: benign appearance 06/07/2017 None Full Exam - General 1994 Ears/Nose/Throat external nose Overall: no masses 06/07/2017 None Full Exam - General 1994 Ears/Nose/Throat external nose Overall: non-tender 06/07/2017 None Full Exam - General 1994 Ears/Nose/Throat otoscopic exam Overall: external auditory canals clear 06/07/2017 None Full Exam - General 1994 Ears/Nose/Throat otoscopic exam Overall: tympanic membranes clear 06/07/2017 None Full Exam - General 1994 Ears/Nose/Throat lips/teeth/gingiva Overall: benign lips 06/07/2017 None Full Exam - General 1994 Ears/Nose/Throat oral cavity/pharynx/larynx Overall: oral mucosa clear 06/07/2017 None Full Exam - General 1994 Neck thyroid Consistency: nodular 08/2017 None Full Exam - General 1994 Neck thyroid Palpation: nontender 08/2017 None Full Exam - General 1994 Respiratory auscultation Overall: breath sounds clear bilaterally 06/07/2017 None Full Exam - General 1994 Respiratory respiratory effort/rhythm Overall: no retractions 06/07/2017 None Full Exam - General 1994 Respiratory respiratory effort/rhythm Overall: normal rate 06/07/2017 None Full Exam - General 1994 Cardiovascular auscultation of heart Overall: regular rate 06/07/2017 None Full Exam - General 1994 Cardiovascular auscultation of heart Overall: normal heart sounds 06/07/2017 None Full Exam - General 1994 Cardiovascular auscultation of heart Overall: no murmurs 06/07/2017 None Full Exam - General 1994 Abdomen abdominal exam Overall: no tenderness 06/07/2017 None Full Exam - General 1994 Abdomen abdominal exam Overall: normal bowel sounds 06/07/2017 None Full Exam - General 1994 Lymphatic neck nodes Overall: anterior cervical chain benign 06/07/2017 None Full Exam - General 1994 Lymphatic neck nodes Overall: posterior cervical chain benign 06/07/2017 None Full Exam - General 1994 Musculoskeletal gait and station Overall: normal gait 06/07/2017 None Full Exam - General 1994 Musculoskeletal gait and station Overall: normal station 06/07/2017 None Full Exam - General 1994 Musculoskeletal head and neck Overall: head atraumatic 06/07/2017 None Full Exam - General 1994 Musculoskeletal head and neck Overall: TMJ benign 06/07/2017 None Full Exam - General 1994 Musculoskeletal head and neck Overall: cervical spine benign 06/07/2017 None Full Exam - General 1994 Integument inspection of skin Overall: no rash, lesions 06/07/2017 None Full Exam - General 1994 Neurologic gait Overall: no ataxia, no unsteadiness 06/07/2017 None Full Exam - General 1994 Neurologic motor Overall: normal bulk, tone 06/07/2017 None Full Exam - General 1994 Psychiatric orientation/consciousness Overall: oriented to person, place and time 06/07/2017 None Full Exam - General 1994 Psychiatric mood and affect Overall: normal mood and affect 06/07/2017 None Full Exam - General 1994 Psychiatric speech Overall: normal quality, no aphasia 06/07/2017 None Full Exam - General 1994 Psychiatric judgment/insight Overall: judgment and insight intact 06/07/2017 None Full Exam - ENT Constitutional general appearance Overall: well nourished 02/07/2017 None Full Exam - ENT Constitutional general appearance Overall: well developed 02/07/2017 None Full Exam - ENT Constitutional general appearance Overall: in no acute distress 02/07/2017 None Full Exam - ENT Ears/Nose/Throat otoscopic exam Overall: external auditory canals normal 02/07/2017 None Full Exam - ENT Ears/Nose/Throat otoscopic exam Left tympanic membrane: air -fluid level 02/07/2017 None Full Exam - ENT Ears/Nose/Throat otoscopic exam Right tympanic membrane: air-fluid level 02/07/2017 None Full Exam - ENT Ears/Nose/Throat nasal mucosa, septum, turbinates Drainage: clear 02/07/2017 None Full Exam - ENT Ears/Nose/Throat nasal mucosa, septum, turbinates Drainage: yellow 02/07/2017 None Full Exam - ENT Ears/Nose/Throat lips/ teeth/gingiva Overall: benign lips 02/07/2017 None Full Exam - ENT Ears/Nose/Throat oropharynx Posterior Pharynx: clear post nasal drainage 02/07/2017 None Full Exam - ENT Face and Head palpation Left maxillary sinus: tender 02/07/2017 None Full Exam - ENT Face and Head palpation Right maxillary sinus: tender 02/07/2017 None Full Exam - ENT Respiratory inspection Overall: no retractions 02/07/2017 None Full Exam - ENT Respiratory inspection Overall: normal rate None Full Exam - ENT Respiratory auscultation Overall: breath sounds clear bilaterally 02/07/2017 None Full Exam - ENT Cardiovascular auscultation of heart Overall: regular rate 02/07/2017 None Full Exam - ENT Cardiovascular auscultation of heart Overall: normal heart sounds 02/07/2017 None Full Exam - ENT Lymphatic palpation of lymph nodes Overall: anterior cervical chain benign 02/07/2017 None Full Exam - ENT Lymphatic palpation of lymph nodes Overall: posterior cervical chain benign 02/07/2017 None Full Exam - ENT Neurologic mood and affect Overall: normal mood 02/07/2017 None Full Exam - ENT Neurologic mood and affect Overall: normal affect 02/07/2017 None Full Exam - ENT Neurologic orientation Overall: oriented to person, place and time 02/07/2017 None Full Exam - General 1994 Constitutional general appearance Development: well developed 12/07/2016 None Full Exam - General 1994 Constitutional general appearance Development: appears stated age 0212/07/2016 None Full Exam - General 1994 Eyes conjunctiva /eyelids Overall: conjunctiva clear 12/07/2016 None Full Exam - General 1994 Eyes conjunctiva /eyelids Overall: cornea clear 12/07/2016 None Full Exam - General 1994 Eyes conjunctiva /eyelids Overall: eyelids normal 12/07/2016 None Full Exam - General 1994 Eyes pupils and irises Overall: pupils equal, round, reactive to light and accomodation 12/07/2016 None Full Exam - General 1994 Ears/Nose/Throat external ear Overall: normal appearance 12/07/2016 None Full Exam - General 1994 Ears/Nose/Throat external ear Overall: no masses 12/07/2016 None Full Exam - General 1994 Ears/Nose/Throat external ear Overall: normal mastoids 12/07/2016 None Full Exam - General 1994 Ears/Nose/Throat external nose Overall: benign appearance 12/07/2016 None Full Exam - General 1994 Ears/Nose/Throat external nose Overall: no masses 12/07/2016 None Full Exam - General 1994 Ears/Nose/Throat external nose Overall: non-tender 12/07/2016 None Full Exam - General 1994 Ears/Nose/Throat otoscopic exam Overall: external auditory canals clear 12/07/2016 None Full Exam - General 1994 Ears/Nose/Throat otoscopic exam Overall: tympanic membranes clear 12/07/2016 None Full Exam - General 1994 Ears/Nose/Throat lips/teeth/gingiva Overall: benign lips 12/07/2016 None Full Exam - General 1994 Ears/Nose/Throat oral cavity/pharynx/larynx Overall: oral mucosa clear 12/07/2016 None Full Exam - General 1994 Neck thyroid Size: enlarged left lobe 12/07/2016 None Full Exam - General 1994 Neck thyroid Size: enlarged right lobe 12/07/2016 None Full Exam - General 1994 Neck thyroid Consistency: nodular 07/2017 None Full Exam - General 1994 Neck thyroid Palpation: nontender 07/2017 None Full Exam - General 1994 Respiratory auscultation Overall: breath sounds clear bilaterally 12/07/2016 None Full Exam - General 1994 Respiratory respiratory effort/rhythm Overall: no retractions 12/07/2016 None Full Exam - General 1994 Respiratory respiratory effort/rhythm Overall: normal rate 12/07/2016 None Full Exam - General 1994 Cardiovascular auscultation of heart Overall: regular rate 12/07/2016 None Full Exam - General 1994 Cardiovascular auscultation of heart Overall: normal heart sounds 12/07/2016 None Full Exam - General 1994 Cardiovascular auscultation of heart Overall: no murmurs 12/07/2016 None Full Exam - General 1994 Abdomen abdominal exam Overall: no tenderness 12/07/2016 None Full Exam - General 1994 Abdomen abdominal exam Overall: normal bowel sounds 12/07/2016 None Full Exam - General 1994 Lymphatic neck nodes Overall: anterior cervical chain benign 12/07/2016 None Full Exam - General 1994 Lymphatic neck nodes Overall: posterior cervical chain benign 12/07/2016 None Full Exam - General 1994 Musculoskeletal gait and station Overall: normal gait 12/07/2016 None Full Exam - General 1994 Musculoskeletal gait and station Overall: normal station 12/07/2016 None Full Exam - General 1994 Musculoskeletal head and neck Overall: head atraumatic 12/07/2016 None Full Exam - General 1994 Musculoskeletal head and neck Overall: TMJ benign 12/07/2016 None Full Exam - General 1994 Musculoskeletal head and neck Overall: cervical spine benign 12/07/2016 None Full Exam - General 1994 Integument inspection of skin Overall: no rash, lesions 12/07/2016 None Full Exam - General 1994 Neurologic gait Overall: no ataxia, no unsteadiness 12/07/2016 None Full Exam - General 1994 Neurologic motor Overall: normal bulk, tone 12/07/2016 None Full Exam - General 1994 Psychiatric orientation/consciousness Overall: oriented to person, place and time 12/07/2016 None Full Exam - General 1994 Psychiatric mood and affect Overall: normal mood and affect 12/07/2016 None Full Exam - General 1994 Psychiatric speech Overall: normal quality, no aphasia 12/07/2016 None Full Exam - General 1994 Psychiatric judgment/insight Overall: judgment and insight intact 12/07/2016 None Full Exam - General 1994 Constitutional general appearance Development: well developed 11/09/2016 None Full Exam - General 1994 Constitutional general appearance Development: appears stated age 0111/09/2016 None Full Exam - General 1994 Eyes conjunctiva /eyelids Overall: conjunctiva clear 11/09/2016 None Full Exam - General 1994 Eyes conjunctiva /eyelids Overall: cornea clear 11/09/2016 None Full Exam - General 1994 Eyes conjunctiva /eyelids Overall: eyelids normal 11/09/2016 None Full Exam - General 1994 Eyes pupils and irises Overall: pupils equal, round, reactive to light and accomodation 11/09/2016 None Full Exam - General 1994 Ears/Nose/Throat external ear Overall: normal appearance 11/09/2016 None Full Exam - General 1994 Ears/Nose/Throat external ear Overall: no masses 11/09/2016 None Full Exam - General 1995 Ears/Nose/Throat external ear Overall: normal mastoids 11/09/2016 None Full Exam - General 1994 Ears/Nose/Throat external nose Overall: benign appearance 11/09/2016 None Full Exam - General 1994 Ears/Nose/Throat external nose Overall: no masses 11/09/2016 None Full Exam - General 1994 Ears/Nose/Throat external nose Overall: non-tender 11/09/2016 None Full Exam - General 1994 Ears/Nose/Throat otoscopic exam Overall: external auditory canals clear 11/09/2016 None Full Exam - General 1994 Ears/Nose/Throat otoscopic exam Overall: tympanic membranes clear 11/09/2016 None Full Exam - General 1994 Ears/Nose/Throat lips/teeth/gingiva Overall: benign lips 11/09/2016 None Full Exam - General 1994 Ears/Nose/Throat lips/teeth/gingiva Overall: normal dentition 11/09/2016 None Full Exam - General 1994 Ears/Nose/Throat oral cavity/pharynx/larynx Overall: oral mucosa clear 11/09/2016 None Full Exam - General 1994 Neck thyroid Overall: nontender 2016 None Full Exam - General 1994 Neck thyroid Overall: no mass lesions 11/09/2016 None Full Exam - General 1994 Neck inspection of neck Overall: normal size 11/09/2016 None Full Exam - General 1994 Neck inspection of neck Overall: normal appearance 11/09/2016 None Full Exam - General 1994 Respiratory auscultation Overall: breath sounds clear bilaterally 11/09/2016 None Full Exam - General 1994 Respiratory respiratory effort/rhythm Overall: no retractions 11/09/2016 None Full Exam - General 1994 Respiratory respiratory effort/rhythm Overall: normal rate 11/09/2016 None Full Exam - General 1994 Cardiovascular auscultation of heart Overall: regular rate 11/09/2016 None Full Exam - General 1994 Cardiovascular auscultation of heart Overall: normal heart sounds 11/09/2016 None Full Exam - General 1994 Abdomen abdominal exam Overall: no tenderness 11/09/2016 None Full Exam - General 1994 Abdomen abdominal exam Overall: normal bowel sounds 11/09/2016 None Full Exam - General 1994 Lymphatic neck nodes Overall: anterior cervical chain benign 11/09/2016 None Full Exam - General 1994 Lymphatic neck nodes Overall: posterior cervical chain benign 11/09/2016 None Full Exam - General 1994 Musculoskeletal head and neck Overall: head atraumatic 11/09/2016 None Full Exam - General 1994 Musculoskeletal head and neck Overall: cervical spine benign 11/09/2016 None Full Exam - General 1994 Neurologic mental status Overall: alert 11/09/2016 None Full Exam - General 1994 Neurologic mental status Overall: oriented 11/09/2016 None Full Exam - General 1994 Neurologic motor Overall: normal bulk, tone 11/09/2016 None Full Exam - General 1994 Psychiatric orientation/consciousness Overall: oriented to person, place and time 11/09/2016 None Full Exam - General 1994 Psychiatric behavior/psychomotor activity Overall: no tics, normal psychomotor activity 11/09/2016 None Full Exam - General 1994 Psychiatric mood and affect Overall: normal mood and affect 11/09/2016 None Full Exam - General 1994 Psychiatric appearance Overall: well-groomed, good eye contact 11/09/2016 None Full Exam - General 1994 Psychiatric speech Overall: normal quality, no aphasia 11/09/2016 None Full Exam - General 1994 Psychiatric thought Overall: normal form and content 11/09/2016 None Full Exam - General 1994 Psychiatric cognition/memory Overall: normal concentration, intelligence 11/09/2016 None Full Exam - General 1994 Psychiatric judgment/insight Overall: judgment and insight intact 11/09/2016 None Full Exam - General 1994 Neck thyroid Size: enlarged gland None Full Exam - General 1994 Neck thyroid Palpation: nontender None Full Exam - General 1994 Neck thyroid Consistency: fluctuant None Full Exam - General 1994 Cardiovascular auscultation of heart Systolic murmur: holosystolic 11/09/2016 None Full Exam - General 1994 Cardiovascular auscultation of heart Diastolic murmur grade: II/ 11/09/2016 None Procedures Procedure Codes Date TRIAMCINOLONE ACET INJ NOS CPT-4: J3301 02/12/2017 THER/PROPH/DIAG INJ SC/IM CPT-4: 13678 02/12/2017 Vital Signs Date Vital 11/08/2017 Blood Pressure 1: 138/62 Code : 8480-6 BMI: 27.5 Code : 97102-5 Heart Rate 1 : 88 bpm Height: 5'5" SpO2: 98% Weight: 165 lbs 10/18/2017 Blood Pressure 1: 136/88 Code : 8480-6 Heart Rate 1: 94 bpm SpO2: 98% 10/11/2017 Blood Pressure 1: 160/80 Code : 8480-6 Blood Pressure 1: 158/88 Code: 8480-6 BMI: 27.6 Code: 88285-8 Heart Rate 1: 94 bpm Height: 5'5" SpO2: 98% Weight: 166 lbs 07/19/2017 Blood Pressure 1: 142/68 Code : 8480-6 BMI: 26.6 Code : 85912-5 Heart Rate 1 : 83 bpm Height: 5'5" SpO2: 98% Weight: 160 lbs 06/07/2017 Blood Pressure 1: 138/78 Code : 8480-6 BMI: 27.0 Code : 40172-9 Heart Rate 1 : 68 bpm Height: 5'5" SpO2: 98% Weight: 162 lbs 02/07/2017 Blood Pressure 1: 134/74 Code : 8480-6 BMI: 27.3 Code : 00449-4 Heart Rate 1 : 72 bpm Height: 5'5" SpO2: 98% Temperature: 37.1 (C) / 98.7 (F) Weight: 164 lbs 12/07/2016 Blood Pressure 1: 134/82 Code : 8480-6 BMI: 27.1 Code : 49723-0 Heart Rate 1 : 90 bpm Height: 5'5" SpO2: 98% Weight: 163 lbs 11/16/2016 Blood Pressure 1: 118/72 Code : 8480-6 11/09/2016 Blood Pressure 1: 140/82 Code : 8480-6 BMI: 27.3 Code : 16244-3 Heart Rate 1 : 79 bpm Height: 5'5" SpO2: 98% Weight: 164 lbs Functional Status No Functional Status data History of Present Illness Symptom Name Status Result Effective Date Notes hypertension Quality chronic 11/08/2017 None hypertension Onset and Resolution ongoing 11/08/2017 None hypertension Pertinent Findings Denies dyspnea 11/08/2017 None gastroesophageal reflux Quality heartburn 10/11/2017 None gastroesophageal reflux Quality constant 10/11/2017 None gastroesophageal reflux Onset and Resolution sudden in onset 10/11/2017 None gastroesophageal reflux Onset of Symptom 3 weeks ago 10/11/2017 None weight gain/obesity Location globally 10/11/2017 None gastroesophageal reflux Severity moderate 10/11/2017 None gastroesophageal reflux Frequency of Episodes daily 10/11/2017 None gastroesophageal reflux Diet solids 10/11/2017 None gastroesophageal reflux Triggers no known associated factors 10/11/2017 None headache Location diffusely 07/19/2017 None headache Onset of Symptom 1 years ago 07/19/2017 None headache Alleviating Factors darkness 07/19/2017 None headache Alleviating Factors quiet/ silence 07/19/2017 None headache Pertinent Findings Denies awakens from sleep 07/19/2017 None headache Pertinent Findings Denies lightheadedness 07/19/2017 None headache Pertinent Findings Denies nausea 07/19/2017 None headache Pertinent Findings stiff neck 07/19/2017 None headache Limitation on Activities does not limit activities 07/19/2017 None headache Frequency of Episodes decreasing 07/19/2017 None headache Quality chronic 07/19/2017 None headache Onset and Resolution ongoing 07/19/2017 None headache Significant Medical Conditions migraines 07/19/2017 None headache Triggers no known associated factors 07/19/2017 None headache Location diffusely 06/07/2017 None headache Quality aching 06/07/2017 None headache Quality constant 06/07/2017 None headache Quality pressure 06/07/2017 None headache Quality tension 06/07/2017 None headache Quality worsening 06/07/2017 None headache Onset and Resolution gradual in onset 06/07/2017 None headache Onset of Symptom 1 years ago 06/07/2017 None headache Frequency of Episodes daily 06/07/2017 None headache Alleviating Factors darkness 06/07/2017 None headache Alleviating Factors quiet/ silence 06/07/2017 None headache Pertinent Findings Denies awakens from sleep 06/07/2017 None headache Pertinent Findings Denies lightheadedness 06/07/2017 None headache Pertinent Findings Denies nausea 06/07/2017 None headache Pertinent Findings stiff neck 06/07/2017 None blood pressure followup Onset and Resolution ongoing 06/07/2017 None blood pressure followup Onset of Symptom during adulthood 06/07/2017 None blood pressure followup Blood Pressure Values not checking blood pressure at home 06/07/2017 None blood pressure followup Severity mild 06/07/2017 None blood pressure followup Frequency of Episodes decreasing 06/07/2017 None blood pressure followup Significant Family History heart disease 06/07/2017 None blood pressure followup Triggers no known associated factors 06/07/2017 None blood pressure followup Pertinent Findings Denies dizziness 06/07/2017 None blood pressure followup Pertinent Findings Denies dyspnea 06/07/2017 None blood pressure followup Pertinent Findings Denies edema 06/07/2017 None hypothyroid Onset and Resolution ongoing 06/07/2017 None hypothyroid Onset of Symptom during adulthood 06/07/2017 None sinus congestion Location on both sides 02/07/2017 None sinus congestion Quality constant 02/07/2017 None sinus congestion Quality fullness 02/07/2017 None sinus congestion Quality pain 02/07/2017 None sinus congestion Quality pressure 02/07/2017 None sinus congestion Onset and Resolution sudden in onset 02/07/2017 None sinus congestion Onset of Symptom 3 days ago 02/07/2017 None sinus congestion Frequency of Episodes daily 02/07/2017 None sore throat Location diffusely 02/07/2017 None sore throat Quality scratchy 02/07/2017 None sore throat Quality constant 02/07/2017 None sore throat Quality burning 02/07/2017 None sore throat Onset and Resolution sudden in onset 02/07/2017 None sore throat Onset of Symptom 3 days ago 02/07/2017 None sore throat Frequency of Episodes daily 02/07/2017 None headache Location diffusely 12/07/2016 None headache Quality aching 12/07/2016 None headache Quality constant 12/07/2016 None headache Quality pressure 12/07/2016 None headache Quality tension 12/07/2016 None headache Quality worsening 12/07/2016 None headache Onset and Resolution gradual in onset 12/07/2016 None headache Onset of Symptom 1 years ago 12/07/2016 None headache Frequency of Episodes daily 12/07/2016 None headache Alleviating Factors darkness 12/07/2016 None headache Alleviating Factors quiet/ silence 12/07/2016 None headache Pertinent Findings Denies awakens from sleep 12/07/2016 None headache Pertinent Findings Denies lightheadedness 12/07/2016 None headache Pertinent Findings Denies nausea 12/07/2016 None headache Pertinent Findings stiff neck 12/07/2016 None blood pressure followup Onset and Resolution ongoing 12/07/2016 None blood pressure followup Onset of Symptom during adulthood 12/07/2016 None blood pressure followup Blood Pressure Values not checking blood pressure at home 12/07/2016 None blood pressure followup Severity mild 12/07/2016 None blood pressure followup Frequency of Episodes decreasing 12/07/2016 None blood pressure followup Significant Family History heart disease 12/07/2016 None blood pressure followup Triggers no known associated factors 12/07/2016 None blood pressure followup Pertinent Findings Denies dizziness 12/07/2016 None blood pressure followup Pertinent Findings Denies dyspnea 12/07/2016 None blood pressure followup Pertinent Findings Denies edema 12/07/2016 None headache Location diffusely 11/09/2016 None headache Quality aching 11/09/2016 None headache Quality constant 11/09/2016 None headache Quality pressure 11/09/2016 None headache Quality tension 11/09/2016 None headache Quality worsening 11/09/2016 None headache Onset and Resolution gradual in onset 11/09/2016 None headache Onset of Symptom 1 years ago 11/09/2016 None headache Frequency of Episodes daily 11/09/2016 None headache Alleviating Factors darkness 11/09/2016 None headache Alleviating Factors quiet/ silence 11/09/2016 None headache Pertinent Findings awakens from sleep 11/09/2016 None headache Pertinent Findings lightheadedness 11/09/2016 None headache Pertinent Findings nausea 11/09/2016 None headache Pertinent Findings stiff neck 11/09/2016 None Advance Directives No Advance Directive data Encounters Encounter Performer Location Codes Date EST. PATIENT, LEVEL III Diagnosis: Essential (primary) hypertension[ICD10: I10] Chaparrita Milner MD, [facility] CPT-4: 97395 11/08/2017 [id number]) [id number] EST. PATIENT, LEVEL I Diagnosis: Essential (primary) hypertension[ICD10: I10] [facility] CPT[facility]: 24703 10/18/2017 [id number] EST. PATIENT, LEVEL IV Diagnosis: Gastro-esophageal reflux disease without esophagitis[ICD10: K21.9] Diagnosis: Hypothyroidism, unspecified[ICD10: E03.9] Diagnosis: Essential (primary) hypertension[ICD10: I10] [facility] CPT-4: 57542 10/11/2017 [id number] 08619 EST. PATIENT, LEVEL III Diagnosis: Headache[ICD10: R51] [facility] CPT-4: 88983 07/19/2017 ([id number]) 43931 EST. PATIENT, LEVEL IV Diagnosis: Headache[ICD10: R51] Diagnosis: Cardiac murmur, unspecified[ICD10: R01.1] Diagnosis: Hypothyroidism, unspecified[ICD10: E03.9] Marie Milner MD, [facility] CPT-4: 35185 06/07/2017 11111 EST. PATIENT, LEVEL IV Diagnosis: Other acute sinusitis[ICD10: J01.80] Diagnosis: Other allergic rhinitis[ICD10: J30.89] Chaparrita Milner MD, [facility] CPT-4: 52831 02/07/2017 ([id number]) 45708 EST. PATIENT, LEVEL III Diagnosis: Headache[ICD10: R51] Diagnosis: Hypothyroidism, unspecified[ICD10: E03.9] Marie Milner MD, [facility] CPT-4: 42638 12/07/2016 ([id number]) Miscellaneous no charge Diagnosis: Elevated blood-pressure reading, without diagnosis of hypertension[ ICD10: R03.0] Daneille Milner MD, [facility] CPT-4: 23667 11/16/2016 ([id number]) OFFICE VISIT, NEW - LEVEL 4 Diagnosis: Elevated blood-pressure reading, without diagnosis of hypertension[ ICD10: R03.0] Diagnosis: Nontoxic goiter, unspecified[ICD10: E04.9] Diagnosis: Cardiac murmur, unspecified[ICD10: R01.1] Diagnosis: Headache[ICD10: R51] Marie Milner MD, [facility] CPT-4: 18868 11/09/2016 Plan of Care Planned Activity Notes Codes Status Date Visit Plan: Hypertension - well controlled - continue with current medications, continue with no added salt diet. Pt has been encouraged to exercise daily. The pt has been advised to call the office if there are any acute concerns about change in blood pressure readings at home. 11/08/2017 Appointment: Chaparrita Ortiz WPtel: [address] [place], [place] [phone] (15 min) Moderate 11/08/2017 Patient Education: Patient Medication Summary Completed 11/08/2017 Visit Plan: HTN - improved - continue with low sodium diet 10/18/2017 Appointment: Nurse Visit 10/18/2017 Patient Education: Patient Medication Summary Completed 10/18/2017 Visit Plan: Esophageal Reflux - the patient has been counseled against excessive intake of caffeine, spicy foods, peppermint, and cinnamon - all of which can exacerbate esophageal reflux. The patient is to take medications as prescribed and call the office if the symptoms are not improving. Hypothyrodism-check labs today Weight gain-check thyroid before start medication for weight loss Elevated blood pressure-stop by next week for blood pressure check 10/11/2017 Appointment: Marie Flores WPtel: [phone] (30 min) Complex 10/11/2017 Patient Education: Patient Medication Summary Completed 10/11/2017 Patient Education: Obesity Completed 10/11/2017 Visit Plan: Headaches-improved with amitriptyline-continue same medications-call if headaches uncontrolled or other concerns. Patient verbalized understanding of plan. 07/19/2017 Appointment: Marie Flores WPtel: [phone] (15 min) Moderate 07/19/2017 Patient Education: Patient Medication Summary Completed 07/19/2017 Visit Plan: Headaches-stop excedrin x 2 weeks-call in 2 weeks with update-if symptoms persist, consider maintenance medication Heart murmur-again recommend echo Thyroid nodule-ultrasound unchanged-repeat in 1 year 06/07/2017 Appointment: Marie Flores WPtel: [phone] (30 min) Complex 06/07/2017 Patient Education: Patient Medication Summary Completed 06/07/2017 Patient Education: Obesity Completed 06/07/2017 Patient Education: Patient Medication Summary Completed 03/20/2017 Visit Plan: Allergies - chronic - recommended pt to use allergy medication as prescribed. Pt has been counseled as to the appropriate use of the medication. Pt to call if allergy symptoms are not controlled with the medication. If using nasal spray, instructions as follows: Nasal spray- use twice daily, one spray per nostril twice daily, after 30 minutes, rinse out nose with saline spray.. Use opposite hand per nostril to spray in the nasal steroid allergy spray. 02/12/2017 Appointment: Nurse Visit 02/12/2017 Patient Education: Patient Medication Summary Completed 02/12/2017 Visit Plan: Sinusitis - Pt has acute infection - pain in face, maxillary region, Pt informed to use decongestant, RX given to patient, sinus rinses also recommended. Call if symptoms do not show improvement. Allergies - chronic - recommended pt to use allergy medication as prescribed. Pt has been counseled as to the appropriate use of the medication. Pt to call if allergy symptoms are not controlled with the medication. If using nasal spray , instructions as follows: Nasal spray- use twice daily, one spray per nostril twice daily, after 30 minutes, rinse out nose with saline spray.. Use opposite hand per nostril to spray in the nasal steroid allergy spray. 02/07/2017 [phone] [phone] [place] (15 min) Moderate 02/07/2017 Patient Education: Patient Medication Summary Completed 02/07/2017 Patient Education: Obesity Completed 02/07/2017 Visit Plan: Headaches-monitor symptoms and call if symptoms persist Blood pressure controlled [id number]-[id number]-[id number] on Synthroid-repeat ultrasound in 6 months to monitor 12/07/2016 [facility]ment: [facility] [phone] [phone] [place] (30 min) Complex 12/07/2016 Patient Education: Patient Medication Summary Completed 12/07/2016 Patient Education: Obesity Completed 12/07/2016 Patient Education: Patient Medication Summary Completed 11/19/2016 Appointment: Nurse Visit 11/16/2016 Patient Education: Patient Medication Summary Completed 11/16/2016 Visit Plan: Elevated Blood Pressure - without diagnosis of hypertension - pt has been instructed to check blood pressure as an outpatient, record blood pressure and heart rate and report to the clinic in two weeks on the findings. Pt advised to cut back on added salt in the diet. Heart murmur- schedule echo Goiter-check labs-schedule thyroid ultrasound Headaches-keep headache dairy-check labs 11/09/2016 Visit Plan: Elevated Blood Pressure - without diagnosis of hypertension - pt has been instructed to check blood pressure as an outpatient, record blood pressure and heart rate and report to the clinic in two weeks on the findings. Pt advised to cut back on added salt in the diet. Heart murmur- schedule echo Goiter-check labs-schedule thyroid ultrasound Headaches-keep headache dairy-check labs 11/09/2016 [facility]ment: [facility] [phone] [phone] [place] New Patient 11/09/2016 Patient Education: Patient Medication Summary Completed 11/09/2016 Instructions Comment Fasting labs next Saturday (CBC, CMP, TSH, lipid panel) Recheck blood pressure on Saturday of next week Migraine log- patient encouraged to keep a daily log concerning precipitating events leading up to migraines (foods ingested, physical activity, sleep deprivation, increased stress ect.) US thyroid ECHO . Elevated Blood Pressure - without diagnosis of hypertension - pt has been instructed to check blood pressure as an outpatient, record blood pressure and heart rate and report to the clinic in two weeks on the findings. Pt advised to cut back on added salt in the diet. Heart murmur-schedule echo Goiter-check labs-schedule thyroid ultrasound Headaches-keep headache dairy-check labs Fasting labs next Saturday (CBC, CMP, TSH, lipid panel) Recheck blood pressure on Saturday of next week Migraine log- patient encouraged to keep a daily log concerning precipitating events leading up to migraines (foods ingested, physical activity, sleep deprivation, increased stress ect.) US thyroid ECHO . Elevated Blood Pressure - without diagnosis of hypertension - pt has been instructed to check blood pressure as an outpatient, record blood pressure and heart rate and report to the clinic in two weeks on the findings. Pt advised to cut back on added salt in the diet. Heart murmur-schedule echo Goiter-check labs-schedule thyroid ultrasound Headaches-keep headache dairy-check labs . Sinusitis - Pt has acute infection - pain in face, maxillary region, Pt informed to use decongestant, RX given to patient, sinus rinses also recommended. Call if symptoms do not show improvement. Allergies - chronic - recommended pt to use allergy medication as prescribed. Pt has been counseled as to the appropriate use of the medication. Pt to call if allergy symptoms are not controlled with the medication. If using nasal spray, instructions as follows: Nasal spray- use twice daily, one spray per nostril twice daily, after 30 minutes, rinse out nose with saline spray.. Use opposite hand per nostril to spray in the nasal steroid allergy spray. call in 2 weeks with update on headaches no excedrin x 2 weeks B12 1000mcg daily Vitamin D 1000 units daily Recommend Echo-patient wants to wait until beginning of year . Headaches-stop excedrin x 2 weeks-call in 2 weeks with update-if symptoms persist, consider maintenance medication Heart murmur-again recommend echo Thyroid nodule-ultrasound unchanged-repeat in 1 year . Headaches-monitor symptoms and call if symptoms persist Blood pressure controlled Kfcnpcuaprzunn-xctqus-jbetatv on Synthroid-repeat ultrasound in 6 months to monitor . Allergies - chronic - recommended pt to use allergy medication as prescribed. Pt has been counseled as to the appropriate use of the medication. Pt to call if allergy symptoms are not controlled with the medication. If using nasal spray, instructions as follows: Nasal spray- use twice daily, one spray per nostril twice daily, after 30 minutes, rinse out nose with saline spray.. Use opposite hand per nostril to spray in the nasal steroid allergy spray. . Headaches-improved with amitriptyline-continue same medications-call if headaches uncontrolled or other concerns. Patient verbalized understanding of plan. . HTN - improved - continue with low sodium diet . Hypertension - well controlled - continue with current medications, continue with no added salt diet. Pt has been encouraged to exercise daily. The pt has been advised to call the office if there are any acute concerns about change in blood pressure readings at home. DEXILANT STOP BY NEXT WEEK FOR BLOOD PRESSURE CHECK CHECK THYROID LABS . Esophageal Reflux - the patient has been counseled against excessive intake of caffeine, spicy foods, peppermint, and cinnamon - all of which can exacerbate esophageal reflux. The patient is to take medications as prescribed and call the office if the symptoms are not improving. Hypothyrodism-check labs today Weight gain-check thyroid before start medication for weight loss Elevated blood pressure-stop by next week for blood pressure check
--- OUTSIDE RECORDS SUMMARY | 2018-08-15 06:04 | XMS REPORT | CCD ---
Author Author Marie Flores MD, [facility] Address [address] [place] [address] Phone Care Team Providers Care Director Electrical Engineering Name Role Phone PP Unavailable CCM Unavailable Summary Purpose Interface Exchange Insurance Providers Payer name Policy type / Coverage type Covered alliance party ID Effective Begin Date Effective End Date [employer] Commercial [employer] [id number] Unknown Unknown Family History Family History data not found Social History Social History Element Codes Description Effective Dates Marital status Unknown carolynn 11/09/2016 Number of children Unknown 1 11/09/2016 Employment Unknown Currently employed 11/09/[address]: 1311184 Former smoker quit in 200311/09/[address]: 866096998 Never drinks alcohol 11/09/2016 Allergies, Adverse Reactions, Alerts Allergies, Adverse Reactions, Alerts data not found Past Medical History Illness Codes Condition Status Onset Date Resolved Date Other acute sinusitis ICD-9: 461.8 ICD-10: J01.80 Active 02/07/2017 Unknown Other allergic rhinitis ICD-9: 477.8 ICD-10: J30.89 Active 02/07/2017 Unknown Essential (primary) hypertension ICD-9: 401.9 ICD-10: I10 Active 10/11/2017 Unknown Hypertension Unknown Active 10/11/2017 Unknown Gastro-esophageal reflux disease without esophagitis ICD-9: 530.81 ICD-10: K21.9 Active 10/11/2017 Unknown Hypothyroidism, unspecified ICD-9: 244.9 ICD-10: E03.9 Active 12/07/2016 Unknown Headache ICD-9: 784.0 ICD-10: R51 Active 11/08/2016 Unknown Cardiac murmur, unspecified ICD-9: 785.2 ICD-10: R01.1 Active 11/08/2016 Unknown Hypothryroidism Unknown Active 03/20/2017 Unknown Nontoxic goiter, unspecified ICD-9: 240.9 ICD-10: E04.9 Active 11/18/2016 Unknown Elevated blood-pressure reading, without diagnosis of hypertension ICD-9: 796.2 ICD-10: R03.0 Active 11/15/2016 Unknown Problems Condition Codes Effective Dates Condition Status Other acute sinusitis ICD-9: 461.8 ICD-10: J01.80 02/07/2017 Active Other allergic rhinitis ICD-9: 477.8 ICD-10: J30.89 02/07/2017 Active Essential (primary) hypertension ICD-9: 401.9 ICD-10: I10 10/11/2017 Active Hypertension Unknown 10/11/2017 Active Gastro-esophageal reflux disease without esophagitis ICD-9: 530.81 ICD-10: K21.9 10/11/2017 Active Hypothyroidism, unspecified ICD-9: 244.9 ICD-10: E03.9 12/07/2016 Active Headache ICD-9: 784.0 ICD-10: R51 11/08/2016 Active Cardiac murmur, unspecified ICD-9: 785.2 ICD-10: R01.1 11/08/2016 Active Hypothryroidism Unknown 03/20/2017 Active Nontoxic goiter, unspecified ICD-9: 240.9 ICD-10: E04.9 11/18/2016 Active Elevated blood-pressure reading, without diagnosis of hypertension ICD-9: 796.2 ICD-10: R03.0 11/15/2016 Active Medications Medication Codes Instructions Start Date Stop Date Status Fill Instructions Keflex 500 mg capsule RxNorm: 606328 1 Capsule(s) PO TID 201712/15/2017 Active Kenalog 40 mg/mL suspension for injection RxNorm: 9340376 1 Milliliter(s) Inj 12/06/2017 12/06/2017 Inactive Zyrtec 10 mg tablet RxNorm: 9751565 1 Tablet(s) PO daily 11/2912/28/2017 Active Flonase Allergy Relief 50 mcg/actuation nasal spray, suspension RxNorm: 8952438 [place] PLACE 1 SPRAY IN EACH NOSTRIL TWO TIMES A DAY 11/2901/27/2018 Active Zithromax Z-Brigido 250 mg tablet RxNorm: 498119 1 Tablet(s) PO daily 11/29/2017 11/28/2017 Inactive Zithromax Z-Brigido 250 mg tablet RxNorm: 289189 1 Tablet(s) PO daily 11/29/2017 12/03/2017 Inactive amitriptyline 50 mg tablet RxNorm: 891932 TAKE ONE TABLET BY MOUTH EVERY NIGHT AT BEDTIME 11/04/2017 10/29/2018 Active Synthroid 88 mcg tablet RxNorm: 896960 1 Tablet(s) PO daily 01/12/2018 Active Synthroid 88 mcg tablet RxNorm: 112923 1 Tablet(s) PO daily 10/14/2017 Inactive Imitrex 25 mg tablet RxNorm: 873391 TAKE ONE TABLET BY MOUTH DAILY NEEDED, MAY REPEAT ONCE 2 HOURS AFTER THE FIRST DOSE IF NEEDED 201612/20/2017 Active amitriptyline 50 mg tablet RxNorm: 051017 1 Tablet(s) PO QHS 10/30/2017 Inactive Flonase Allergy Relief 50 mcg/actuation nasal spray, suspension RxNorm: 7581738 PLACE 1 SPRAY IN EACH NOSTRIL TWO TIMES A DAY 07/31/2017 09/28/2017 Inactive Synthroid 75 mcg tablet RxNorm: 573418 1 Tablet(s) PO daily 07/09/2017 Inactive Synthroid 75 mcg tablet RxNorm: 520457 1 Tablet(s) PO daily 10/14/2017 Inactive amitriptyline 25 mg tablet RxNorm: 230890 1 Tablet(s) PO QHS 08/01/2017 Inactive amitriptyline 25 mg tablet RxNorm: 775127 1 Tablet(s) PO QHS 06/20/2017 Inactive Synthroid 50 mcg tablet RxNorm: 661064 1 Tablet(s) PO daily 07/09/2017 Inactive Imitrex 25 mg tablet RxNorm: 406574 TAKE ONE TABLET BY MOUTH DAILY NEEDED, MAY REPEAT ONCE 2 HOURS AFTER THE FIRST DOSE IF NEEDED 201606/05/2017 Inactive Synthroid 50 mcg tablet RxNorm: 072426 1 Tablet(s) PO daily 03/20/2017 Inactive Synthroid 50 mcg tablet RxNorm: 888243 1 Tablet(s) PO daily 05/20/2017 Inactive Flonase Allergy Relief 50 mcg/actuation nasal spray, suspension RxNorm: 3312483 1 [place] NASAL BID 02/12/20172016 Inactive Kenalog 40 mg/mL suspension for injection RxNorm: 7733948 Milliliter(s) Inj 02/12/2017 02/12/2017 Inactive Zyrtec 10 mg tablet RxNorm: 2775229 1 Tablet(s) PO daily 02/1202/11/2017 Inactive Zyrtec 10 mg tablet RxNorm: 8802355 1 Tablet(s) PO daily 02/1203/13/2017 Inactive amoxicillin 500 mg capsule RxNorm: 499633 1 Capsule(s) PO TID 02/07/2017 02/13/2017 Inactive Imitrex 25 mg tablet RxNorm: 948653 1 Tablet(s) PO daily as needed may repeat dose once 2 hours after the first dose if needed 02/07/2017 05/02/2017 Inactive Synthroid 25 mcg tablet RxNorm: 504209 1 Tablet(s) PO daily 11/21/2016 Inactive Synthroid 25 mcg tablet RxNorm: 633518 1 Tablet(s) PO daily 03/20/2017 Inactive Vitamin C 1,000 mg tablet RxNorm: 904245 1 Tablet(s) PO daily No Start Date Active Multivitamins FC tablet RxNorm: 1 Tablet(s) PO daily No Start Date Active Flonase Allergy Relief 50 mcg/actuation nasal spray, suspension RxNorm: 6181729 1 [place] NASAL BID No Start Date 2016 Inactive Medication Administered Medication Codes Instructions Start Date Status Kenalog 40 mg/mL suspension for injection RxNorm: 0615551 1Milliliter 12/06/2017 Active Kenalog 40 mg/mL suspension for injection RxNorm: 9612361 [place] 02/12/2017 No longer Active Immunizations No Immunization data Assessments Condition Codes Effective Dates Other acute sinusitis ICD-10: J01.80 ICD-9: 461.8 12/06/2017 Other allergic rhinitis ICD-10: J30.89 ICD-9: 477.8 12/06/2017 Essential (primary) hypertension ICD-10: I10 ICD-9: 401.9 11/08/2017 Hypothyroidism, unspecified ICD-10: E03.9 ICD-9: 244.9 10/11/2017 Gastro-esophageal reflux disease without esophagitis ICD-10 : K21.9 ICD-9: 530.81 10/11/2017 Headache ICD-10: R51 ICD-9: 784.0 07/19/2017 Cardiac murmur, unspecified ICD-10: R01.1 ICD-9: 785.2 06/07/2017 Nontoxic goiter, unspecified ICD-10: E04.9 ICD-9: 240.9 11/19/2016 Elevated blood-pressure reading, without diagnosis of hypertension ICD-10: R03.0 ICD-9: 796.2 11/16/2016 Reason For Visit Reason For Visit Effective Dates Notes sinus congestion 12/06/2017 hypertension 11/08/2017 gastroesophageal reflux 10/11/2017 headache 07/19/2017 headache 06/07/2017 sinus congestion 02/07/2017 headache 12/07/2016 headache 11/09/2016 Results Observation Observation Code Item Item Code Result Date Tsh Ord6 hTSH II 5.88 uIU/mL 10/11/2017 Free T4 [id number] FREE T4 0.77 ng/dL 10/11/2017 Free T4 Nbw104 FREE T4 0.71 ng/dL 06/28/2017 Tsh Ord6 hTSH II 5.37 uIU/mL 06/28/2017 Tsh Ord6 hTSH II 10.22 uIU/mL 03/21/2017 Free T4 Ndt444 FREE T4 0.63 ng/dL 03/21/2017 Free T4 Qml892 FREE T4 0.57 ng/dL 11/19/2016 Cbc With [...] 33.9 % 11/16/2016 Cbc With Differential Ord2 [place]% 8.4 % 11/16/2016 Cbc With Differential Ord2 [...] 2.35 K/ul 11/16/2016 Cbc With Differential Ord2 [place] ABS# 0.6 K/ul 11/16/2016 Cbc With Differential Ord2 Eos ABS# 0.1 K/ul 11/16/2016 Cbc With Differential Ord2 Baso ABS# 0.0 K/ul 11/16/2016 Comp Metabolic Cbn386 NA 137 mEq/L 11/16/2016 Comp Metabolic Cbq613 K 4.1 mEq/L 11/16/2016 Comp Metabolic Ytd686 CL 106 mEq/L 11/16/2016 Comp Metabolic Ush665 CO2 22.0 mEq/L 11/16/2016 Comp Metabolic Tfs151 ANION GAP 13 11/16/2016 Comp Metabolic Dtb848 GLUCOSE 94 mg/dL 11/16/2016 Comp Metabolic Hvb396 Creat 0.9 mg/dL 11/16/2016 Comp Metabolic Jrr391 eGFR 72 ml/min/1.73m2 11/16/2016 Comp Metabolic Ruv798 BUN 21 mg/dL 11/16/2016 Comp Metabolic Ttm937 B/C Ratio 23.6 Ratio 11/16/2016 Comp Metabolic Xoe648 CALCIUM 9.5 mg/dL 11/16/2016 Comp Metabolic Iji486 ALK PHOS 44 U/L 11/16/2016 Comp Metabolic Zzo607 AST(SGOT) 13 U/L 11/16/2016 Comp Metabolic Rju805 ALT(SGPT) 12 U/L 11/16/2016 Comp Metabolic Gnf473 BILI T 0.5 mg/dL 11/16/2016 Comp Metabolic Njm387 ALBUMIN 4.3 g/dL 11/16/2016 Comp Metabolic Ohl858 TPRO 6.8 g/dL 11/16/2016 Comp Metabolic Adr539 GLOB 2.5 g/dL 11/16/2016 Comp Metabolic Hmh452 A/G Ratio 1.7 Ratio 11/16/2016 Comp Metabolic Xtc225 Osmo 277 mOsmo 11/16/2016 Lipid Ord30 CHOL 191 mg/dL 11/16/2016 Lipid Ord30 HDL 52.0 mg/dl 11/16/2016 Lipid Ord30 TRIG 60 mg/dL 11/16/2016 Lipid Ord30 LDL 127 mg/dL 11/16/2016 Lipid Ord30 C/HDL 3.7 Ratio 11/16/2016 Tsh Ord6 hTSH II 7.58 uIU/mL 11/16/2016 Review of Systems System Result Effective Dates Constitutional recent illness 12/06/2017 Constitutional No chills 12/06/2017 Constitutional No diaphoresis 12/06/2017 Constitutional No fever 12/06/2017 Eyes No eye erythema 12/06/2017 Ears/Nose/Throat/Neck nasal allergies 06/2018 Ears/Nose/Throat/Neck nasal discharge 06/2018 Ears/Nose/Throat/Neck postnasal drip 06/2018 Ears/Nose/Throat/Neck sinus congestion Ears/Nose/Throat/Neck No sore throat 06/2018 Cardiovascular No chest pain/pressure 06/2018 Cardiovascular No dyspnea 12/06/2017 Respiratory No chest congestion 2017 Respiratory cough 12/06/2017 Respiratory No dyspnea 12/06/2017 Gastrointestinal No abdominal pain 2017 Gastrointestinal No constipation 2017 Gastrointestinal No diarrhea 12/06/2017 Gastrointestinal No nausea 12/06/2017 Gastrointestinal No vomiting 12/06/2017 Dermatologic No rash 12/06/2017 Neurologic No alteration of consciousness 12/06/2017 Neurologic No mental status change 2017 Eyes No eye pain 11/08/2017 Eyes No [...] Result Effective Dates Notes Full Exam - ENT Constitutional general appearance Overall: well nourished 12/06/2017 None Full Exam - ENT Constitutional general appearance Overall: well developed 12/06/2017 None Full Exam - ENT Constitutional general appearance Overall: in no acute distress 12/06/2017 None Full Exam - ENT Ears/Nose/Throat otoscopic exam Overall: external auditory canals normal 12/06/2017 None Full Exam - ENT Ears/Nose/Throat otoscopic exam Left tympanic membrane: air -fluid level 12/06/2017 None Full Exam - ENT Ears/Nose/Throat otoscopic exam Right tympanic membrane: air-fluid level 12/06/2017 None Full Exam - ENT Ears/Nose/Throat nasal mucosa, septum, turbinates Drainage: clear 12/06/2017 None Full Exam - ENT Ears/Nose/Throat nasal mucosa, septum, turbinates Drainage: yellow 12/06/2017 None Full Exam - ENT Ears/Nose/Throat lips/ teeth/gingiva Overall: benign lips 12/06/2017 None Full Exam - ENT Ears/Nose/Throat oropharynx Posterior Pharynx: clear post nasal drainage 12/06/2017 None Full Exam - ENT Face and Head palpation Left maxillary sinus: tender 12/06/2017 None Full Exam - ENT Face and Head palpation Right maxillary sinus: tender 12/06/2017 None Full Exam - ENT Respiratory inspection Overall: no retractions 12/06/2017 None Full Exam - ENT Respiratory inspection Overall: normal rate 06/2018 None Full Exam - ENT Respiratory auscultation Overall: breath sounds clear bilaterally 12/06/2017 None Full Exam - ENT Cardiovascular auscultation of heart Overall: regular rate 12/06/2017 None Full Exam - ENT Cardiovascular auscultation of heart Overall: normal heart sounds 12/06/2017 None Full Exam - ENT Lymphatic palpation of lymph nodes Overall: anterior cervical chain benign 12/06/2017 None Full Exam - ENT Lymphatic palpation of lymph nodes Overall: posterior cervical chain benign 12/06/2017 None Full Exam - ENT Neurologic mood and affect Overall: normal mood 12/06/2017 None Full Exam - ENT Neurologic mood and affect Overall: normal affect 12/06/2017 None Full Exam - ENT Neurologic orientation Overall: oriented to person, place and time 12/06/2017 None Full Exam - General 1994 Constitutional [...] 1994 Ears/Nose/Throat external ear Overall: normal mastoids 07/19/2017 [...] appearance 11/09/2016 None Full Exam - General 1995 Ears/Nose/Throat external ear Overall: no masses 11/09/2016 None Full Exam - General 1994 Ears/Nose/Throat external ear Overall: normal mastoids 11/09/2016 None Full Exam - General 1994 Ears/Nose/Throat external nose Overall: benign appearance 11/09/2016 None Full Exam - General 1995 Ears/Nose/Throat external nose Overall: no masses 11/09/2016 [...] II/ 11/09/2016 None Procedures Procedure Codes Date THER/PROPH/DIAG INJ SC/IM CPT-4: 78295 12/06/2017 TRIAMCINOLONE ACET INJ NOS CPT-4: J3301 12/06/2017 TRIAMCINOLONE ACET INJ NOS CPT-4: J3301 02/12/2017 THER/PROPH/DIAG INJ SC/IM CPT-4: 81774 02/12/2017 Vital Signs Date Vital 12/06/2017 Blood Pressure 1: 148/92 Code : 8480-6 BMI: 27.5 Code : 17920-6 Heart Rate 1 : 111 bpm Height: 5'5" SpO2: 98% Weight: 165 lbs 11/08/2017 Blood Pressure 1: 138/62 Code : 8480-6 BMI: 27.5 Code : 53818-1 Heart Rate 1 : 88 bpm Height: 5'5" SpO2: 98% Weight: 165 lbs 10/18/2017 Blood Pressure 1: 136/88 Code : 8480-6 Heart Rate 1: 94 bpm SpO2: 98% 10/11/2017 Blood Pressure 1: 160/80 Code : 8480-6 Blood Pressure 1: 158/88 Code: 8480-6 BMI: 27.6 Code: 15903-7 Heart Rate 1: 94 bpm Height: 5'5" SpO2: 98% Weight: 166 lbs 07/19/2017 Blood Pressure 1: 142/68 Code : 8480-6 BMI: 26.6 Code : 10984-2 Heart Rate 1 : 83 bpm Height: 5'5" SpO2: 98% Weight: 160 lbs 06/07/2017 Blood Pressure 1: 138/78 Code : 8480-6 BMI: 27.0 Code : 25415-6 Heart Rate 1 : 68 bpm Height: 5'5" SpO2: 98% Weight: 162 lbs 02/07/2017 Blood Pressure 1: 134/74 Code : 8480-6 BMI: 27.3 Code : 49370-0 Heart Rate 1 : 72 bpm Height: 5'5" SpO2: 98% Temperature: 37.1 (C) / 98.7 (F) Weight: 164 lbs 12/07/2016 Blood Pressure 1: 134/82 Code : 8480-6 BMI: 27.1 Code : 61196-3 Heart Rate 1 : 90 bpm Height: 5'5" SpO2: 98% Weight: 163 lbs 11/16/2016 Blood Pressure 1: 118/72 Code : 8480-6 11/09/2016 Blood Pressure 1: 140/82 Code : 8480-6 BMI: 27.3 Code : 97031-6 Heart Rate 1 : 79 bpm Height: 5'5" SpO2: 98% Weight: 164 lbs Functional Status No Functional Status data History of Present Illness Symptom Name Status Result Effective Date Notes sinus congestion Location frontal sinuses 12/06/2017 None sinus congestion Quality fullness 12/06/2017 None sinus congestion Quality pressure 12/06/2017 None sinus congestion Quality pain 12/06/2017 None sinus congestion Onset and Resolution ongoing 12/06/2017 None hypertension Quality chronic 11/08/2017 None hypertension Onset [...] Codes Date EST. PATIENT, LEVEL III Diagnosis: Other acute sinusitis[ICD10: J01.80] Diagnosis: Other allergic rhinitis[ICD10: J30.89] [facility] CPT-4: 87395 12/06/2017 [id number] EST. PATIENT, LEVEL III Diagnosis: Essential (primary) hypertension[ICD10: I10] [facility] CPT-4: 24480 11/08/2017 ([id number]) [id number] EST. PATIENT, LEVEL I Diagnosis: Essential (primary) hypertension[ICD10: I10] Chaparrita Milner MD, [facility] CPT-4: 48997 10/18/2017 ([id number]) 27224 EST. PATIENT, LEVEL IV Diagnosis: Gastro-esophageal reflux disease without esophagitis[ICD10: K21.9] Diagnosis: Hypothyroidism, unspecified[ICD10: E03.9] Diagnosis: Essential (primary) hypertension[ICD10: I10] Marie Milner MD, [facility] CPT-4: 32330 10/11/2017 ([id number]) 16710 EST. PATIENT, LEVEL III Diagnosis: Headache[ICD10: R51] Marie Milner MD, [facility] CPT-4: 55025 07/19/2017 ([id number]) 69514 EST. PATIENT, LEVEL IV Diagnosis: Headache[ICD10: R51] Diagnosis: Cardiac murmur, unspecified[ICD10: R01.1] Diagnosis: Hypothyroidism, unspecified[ICD10: E03.9] Marie Milner MD, [facility] CPT-4: 55958 06/07/2017 [id number] EST. PATIENT, LEVEL IV Diagnosis: Other acute sinusitis[ICD10: J01.80] Diagnosis: Other allergic rhinitis[ICD10: J30.89] Chaparrita Milner MD, [facility] CPT-4: 51748 02/07/2017 ([id number]) 79074 EST. PATIENT, LEVEL III Diagnosis: Headache[ICD10: R51] Diagnosis: Hypothyroidism, unspecified[ICD10: E03.9] Marie Milner MD, [facility] CPT-4: 34556 12/07/2016 ([id number]) Miscellaneous no charge Diagnosis: Elevated blood-pressure reading, without diagnosis of hypertension[ ICD10: R03.0] Danielle Milner MD, [facility] CPT-4: 12979 11/16/2016 ([id number]) OFFICE VISIT, NEW - LEVEL 4 Diagnosis: Elevated blood-pressure reading, without diagnosis of hypertension[ ICD10: R03.0] Diagnosis: Nontoxic goiter, unspecified[ICD10: E04.9] Diagnosis: Cardiac murmur, unspecified[ICD10: R01.1] Diagnosis: Headache[ICD10: R51] [facility] CPT-4: 75194 11/09/2016 Plan of Care Planned Activity Notes Codes Status Date Visit Plan: Sinusitis - Pt has acute [...] spray in the nasal steroid allergy spray. 12/06/2017 Patient Education: Patient Medication Summary Completed 12/06/2017 Visit Plan: Hypertension - well controlled - continue with current medications, continue with no added salt diet. Pt has been encouraged to exercise daily. The pt has been advised to call the office if there are any acute concerns about change in blood pressure readings at home. 11/08/2017 Appointment: Chaparrita Ortiz [phone] (15 min) Moderate 11/08/2017 Patient Education: Patient [...] pressure check 10/11/2017 Appointment: Marie Flores [facility] [phone] [phone] (30 min) Complex 10/11/2017 Patient Education: Patient Medication Summary Completed 10/11/2017 Patient Education: Obesity Completed 10/11/2017 Visit Plan: Headaches-improved with amitriptyline-continue same medications-call if headaches uncontrolled or other concerns. Patient verbalized understanding of plan. 07/19/2017 Appointment: Marie Flores WPtel: [phone] [phone] (15 min) Moderate 07/19/2017 Patient Education: Patient Medication Summary Completed 07/19/2017 Visit Plan: Headaches-stop excedrin x 2 weeks-call in 2 weeks with update-if symptoms persist, consider maintenance medication Heart murmur-again recommend echo Thyroid nodule-ultrasound unchanged-repeat in 1 year 06/07/2017 Appointment: Marie Flores WPtel: [phone] [phone] (30 min) Complex 06/07/2017 Patient Education: Patient [...] allergy spray. 02/07/2017 Appointment: Chap[facility]rita Ortiz [facility] [phone] [phone] [place] (15 min) Moderate 02/07/2017 Patient Education: Patient Medication Summary Completed 02/07/2017 Patient Education: Obesity Completed 02/07/2017 Visit Plan: Headaches-monitor symptoms and call if symptoms persist Blood pressure controlled Ctitkadsyyyirj-zwsqcg-miwozcm on Synthroid-repeat ultrasound in 6 months to monitor 12/07/2016 Appointment: Marie Flores WPtel: [phone] [place] (30 min) Complex 12/07/2016 Patient Education: [...] dairy-check labs 11/09/2016 Appointment: Marie Flores WPtel: [phone] [place] New Patient 11/09/2016 Patient Education: Patient [...] in the nasal steroid allergy spray. . Sinusitis - Pt has acute infection [...] call if symptoms persist Blood pressure controlled Maakrjoumrpveo-xbjynz-glqyqyn on Synthroid-repeat ultrasound in 6 months to [...]
--- OUTSIDE RECORDS SUMMARY | 2018-08-15 06:05 | XMS REPORT | CCD ---
Author Author Marie Flores MD, [facility] Address [address] [place] [address] Phone Care Team Providers Care Senior Interactive Producer Name Role Phone PP Unavailable CCM Unavailable Summary Purpose Interface Exchange Insurance Providers Payer name Policy type / Coverage type Covered republican ID Effective Begin Date Effective End Date [employer] Commercial Insurance [id number] Unknown Unknown Family History Family History data not found Social History Social History Element Codes Description Effective Dates Marital status Unknown carolynn 11/09/2016 Number of children Unknown 1 11/09/2016 Employment Unknown Currently employed 11/09/[address]: 4601621 Former smoker quit in 200311/09/[address]: 768928566 Never drinks alcohol 11/09/2016 Allergies, Adverse Reactions, [...] Start Date Stop Date Status Fill Instructions Zyrtec 10 mg tablet RxNorm: 9726325 1 Tablet(s) PO daily 11/2912/28/2017 Active Zithromax Z-Brigido 250 mg tablet RxNorm: 348557 1 Tablet(s) PO daily 11/29/2017 12/03/2017 Active Flonase Allergy Relief 50 mcg/actuation nasal spray, suspension RxNorm: 5221270 [place] PL[address] 1 SPRAY IN EACH NOSTRIL TWO TIMES A DAY 11/2901/27/2018 Active Zithromax Z-Brigido 250 mg tablet RxNorm: 248768 1 Tablet(s) PO daily 11/29/2017 11/28/2017 Inactive amitriptyline 50 mg tablet RxNorm: 658056 TAKE ONE TABLET BY MOUTH EVERY NIGHT AT BEDTIME 11/04/2017 10/29/2018 Active Synthroid 88 mcg tablet RxNorm: 920042 1 Tablet(s) PO daily 01/12/2018 Active Synthroid 88 mcg tablet RxNorm: 219348 1 Tablet(s) PO daily 10/14/2017 Inactive Imitrex 25 mg tablet RxNorm: 375029 TAKE ONE TABLET BY MOUTH DAILY NEEDED, MAY REPEAT ONCE 2 HOURS AFTER THE FIRST DOSE IF NEEDED 201612/20/2017 Active amitriptyline 50 mg tablet RxNorm: 751277 1 Tablet(s) PO QHS 10/30/2017 Inactive Flonase Allergy Relief 50 mcg/actuation nasal spray, suspension RxNorm: 5810626 PLACE 1 SPRAY IN EACH NOSTRIL TWO TIMES A DAY 07/31/2017 09/28/2017 Inactive Synthroid 75 mcg tablet RxNorm: 894194 1 Tablet(s) PO daily 07/09/2017 Inactive Synthroid 75 mcg tablet RxNorm: 107133 1 Tablet(s) PO daily 10/14/2017 Inactive amitriptyline 25 mg tablet RxNorm: 957897 1 Tablet(s) PO QHS 08/01/2017 Inactive amitriptyline 25 mg tablet RxNorm: 335558 1 Tablet(s) PO QHS 06/20/2017 Inactive Synthroid 50 mcg tablet RxNorm: 729356 1 Tablet(s) PO daily 07/09/2017 Inactive Imitrex 25 mg tablet RxNorm: 792897 TAKE ONE TABLET BY MOUTH DAILY NEEDED, MAY REPEAT ONCE 2 HOURS AFTER THE FIRST DOSE IF NEEDED 201606/05/2017 Inactive Synthroid 50 mcg tablet RxNorm: 371789 1 Tablet(s) PO daily 03/20/2017 Inactive Synthroid 50 mcg tablet RxNorm: 415632 1 Tablet(s) PO daily 05/20/2017 Inactive Flonase Allergy Relief 50 mcg/actuation nasal spray, suspension RxNorm: 1815367 1 [place] NASAL BID 02/12/20172016 Inactive Kenalog 40 mg/mL suspension for injection RxNorm: 6040255 Milliliter(s) Inj 02/12/2017 02/12/2017 Inactive Zyrtec 10 mg tablet RxNorm: 2805760 1 Tablet(s) PO daily 02/1202/11/2017 Inactive Zyrtec 10 mg tablet RxNorm: 1119740 1 Tablet(s) PO daily 02/1203/13/2017 Inactive amoxicillin 500 mg capsule RxNorm: 255944 1 Capsule(s) PO TID 02/07/2017 02/13/2017 Inactive Imitrex 25 mg tablet RxNorm: 525208 1 Tablet(s) PO daily as needed may repeat dose once 2 hours after the first dose if needed 02/07/2017 05/02/2017 Inactive Synthroid 25 mcg tablet RxNorm: 766696 1 Tablet(s) PO daily 11/21/2016 Inactive Synthroid 25 mcg tablet RxNorm: 411108 1 Tablet(s) PO daily 03/20/2017 Inactive Vitamin C 1,000 mg tablet RxNorm: 924028 1 Tablet(s) PO daily No Start Date Active Multivitamins FC tablet RxNorm: 1 Tablet(s) PO daily No Start Date Active Flonase Allergy Relief 50 mcg/actuation nasal spray, suspension RxNorm: 0360299 1 [place] NASAL BID No Start Date 2016 Inactive Medication Administered Medication Codes Instructions Start Date Status Kenalog 40 mg/mL suspension for injection RxNorm: 9198733 [place] 02/12/2017 No longer Active Immunizations No [...] hTSH II 5.88 uIU/mL 10/11/2017 Free T4 Ruz392 FREE T4 0.77 ng/dL 10/11/2017 Free T4 Osr209 FREE T4 0.71 ng/dL 06/28/2017 Tsh Ord6 hTSH II 5.37 uIU/mL 06/28/2017 Tsh Ord6 hTSH II 10.22 uIU/mL 03/21/2017 Free T4 Tvd158 FREE T4 0.63 ng/dL 03/21/2017 Free T4 Juh199 FREE T4 0.57 ng/dL 11/19/2016 Cbc With [...] 33.9 % 11/16/2016 Cbc With Differential Ord2 [place]% 8.4 % 11/16/2016 Cbc With Differential Ord2 [...] 2.35 K/ul 11/16/2016 Cbc With Differential Ord2 [place] ABS# 0.6 K/ul 11/16/2016 Cbc With Differential Ord2 [place] ABS# 0.1 K/ul 11/16/2016 Cbc With Differential Ord2 Baso ABS# 0.0 K/ul 11/16/2016 Comp Metabolic Gkq473 NA 137 mEq/L 11/16/2016 Comp Metabolic Fvc619 K 4.1 mEq/L 11/16/2016 Comp Metabolic Mwz323 CL 106 mEq/L 11/16/2016 Comp Metabolic Wzb717 CO2 22.0 mEq/L 11/16/2016 Comp Metabolic Pxv855 ANION GAP 13 11/16/2016 Comp Metabolic Qpf169 GLUCOSE 94 mg/dL 11/16/2016 Comp Metabolic Tsh098 Creat 0.9 mg/dL 11/16/2016 Comp Metabolic Sbi808 eGFR 72 ml/min/1.73m2 11/16/2016 Comp Metabolic Gqk344 BUN 21 mg/dL 11/16/2016 Comp Metabolic Nis244 B/C Ratio 23.6 Ratio 11/16/2016 Comp Metabolic Yhb442 CALCIUM 9.5 mg/dL 11/16/2016 Comp Metabolic Kfq008 ALK PHOS 44 U/L 11/16/2016 Comp Metabolic Cpm037 AST(SGOT) 13 U/L 11/16/2016 Comp Metabolic Mpp407 ALT(SGPT) 12 U/L 11/16/2016 Comp Metabolic Czl118 BILI T 0.5 mg/dL 11/16/2016 Comp Metabolic Awp191 ALBUMIN 4.3 g/dL 11/16/2016 Comp Metabolic Utv018 TPRO 6.8 g/dL 11/16/2016 Comp Metabolic Zkd119 GLOB 2.5 g/dL 11/16/2016 Comp Metabolic Sys968 A/G Ratio 1.7 Ratio 11/16/2016 Comp Metabolic Jew758 Osmo 277 mOsmo 11/16/2016 Lipid Ord30 CHOL [...] accomodation 06/07/2017 None Full Exam - General 1995 Ears/Nose/Throat external ear Overall: normal appearance 06/07/2017 None Full Exam - General 1995 Ears/Nose/Throat external ear Overall: no masses 06/07/2017 None Full Exam - General 1995 Ears/Nose/Throat external ear Overall: normal mastoids 06/07/2017 None Full Exam - General 1995 Ears/Nose/Throat external nose Overall: benign appearance 06/07/2017 None Full Exam - General 1994 Ears/Nose/Throat external nose Overall: no masses 06/07/2017 None Full Exam - General 1995 Ears/Nose/Throat external nose Overall: non-tender 06/07/2017 None Full Exam - General 1995 Ears/Nose/Throat otoscopic exam Overall: external auditory canals [...] clear 12/07/2016 None Full Exam - General 1995 Ears/Nose/Throat otoscopic exam Overall: tympanic membranes clear [...] CPT-4: J3301 02/12/2017 THER/PROPH/DIAG INJ SC/IM CPT-4: 77428 02/12/2017 Vital Signs Date Vital 11/08/2017 Blood Pressure 1: 138/62 Code : 8480-6 BMI: 27.5 Code : 82842-2 Heart Rate 1 : 88 bpm Height: 5'5" SpO2: 98% Weight: 165 lbs 10/18/2017 Blood Pressure 1: 136/88 Code : 8480-6 Heart Rate 1: 94 bpm SpO2: 98% 10/11/2017 Blood Pressure 1: 158/88 Code : 8480-6 Blood Pressure 1: 160/80 Code: 8480-6 BMI: 27.6 Code: 43441-4 Heart Rate 1: 94 bpm Height: 5'5" SpO2: 98% Weight: 166 lbs 07/19/2017 Blood Pressure 1: 142/68 Code : 8480-6 BMI: 26.6 Code : 32057-7 Heart Rate 1 : 83 bpm Height: 5'5" SpO2: 98% Weight: 160 lbs 06/07/2017 Blood Pressure 1: 138/78 Code : 8480-6 BMI: 27.0 Code : 20986-1 Heart Rate 1 : 68 bpm Height: 5'5" SpO2: 98% Weight: 162 lbs 02/07/2017 Blood Pressure 1: 134/74 Code : 8480-6 BMI: 27.3 Code : 35271-5 Heart Rate 1 : 72 bpm Height: 5'5" SpO2: 98% Temperature: 37.1 (C) / 98.7 (F) Weight: 164 lbs 12/07/2016 Blood Pressure 1: 134/82 Code : 8480-6 BMI: 27.1 Code : 31957-8 Heart Rate 1 : 90 bpm Height: 5'5" SpO2: 98% Weight: 163 lbs 11/16/2016 Blood Pressure 1: 118/72 Code : 8480-6 11/09/2016 Blood Pressure 1: 140/82 Code : 8480-6 BMI: 27.3 Code : 24620-1 Heart Rate 1 : 79 bpm Height: [...] Essential (primary) hypertension[ICD10: I10] Chaparrita Milner MD, [facility] CPT-4: 14891 11/08/2017 ([id number]) 33287 EST. PATIENT, LEVEL I Diagnosis: Essential (primary) hypertension[ICD10: I10] Chaparrita Milner MD, [facility] CPT-4: 25819 10/18/2017 ([id number]) 54304 EST. PATIENT, LEVEL IV Diagnosis: Gastro-esophageal reflux disease without esophagitis[ICD10: K21.9] Diagnosis: Hypothyroidism, unspecified[ICD10: E03.9] Diagnosis: Essential (primary) hypertension[ICD10: I10] Marie Milner MD, [facility] CPT-4: 92294 10/11/2017 ([id number]) 76077 EST. PATIENT, LEVEL III Diagnosis: Headache[ICD10: R51] Marie Milner MD, [facility] CPT-4: 34177 07/19/2017 ([id number]) 65405 EST. PATIENT, LEVEL IV Diagnosis: Headache[ICD10: R51] Diagnosis: Cardiac murmur, unspecified[ICD10: R01.1] Diagnosis: Hypothyroidism, unspecified[ICD10: E03.9] Marie Milner MD, [facility] CPT-4: 20529 06/07/2017 22658 EST. PATIENT, LEVEL IV Diagnosis: Other acute sinusitis[ICD10: J01.80] Diagnosis: Other allergic rhinitis[ICD10: J30.89] Chaparrita Milner MD, [facility] CPT-4: 95962 02/07/2017 ([id number]) 51491 EST. 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 Pt has been encouraged to exercise daily. The pt has been advised to call the office if there are any acute concerns about change in blood pressure readings at home. 11/08/2017 Appointment: Chaparrita Ortiz WPtel: [phone] [phone] (15 min) Moderate 11/08/2017 Patient Education: Patient [...] pressure check 10/11/2017 Appointment: Marie Flores WPtel: [phone] [place] (30 min) Complex 10/11/2017 Patient Education: Patient Medication Summary Completed 10/11/2017 Patient Education: Obesity Completed 10/11/2017 Visit Plan: Headaches-improved with amitriptyline-continue same medications-call if headaches uncontrolled or other concerns. Patient verbalized understanding of plan. 07/19/2017 Appointment: Marie Flores WPtel: [phone] [place] (15 min) Moderate 07/19/2017 Patient Education: Patient Medication Summary Completed 07/19/2017 Visit Plan: Headaches-stop excedrin x 2 weeks-call in 2 weeks with update-if symptoms persist, consider maintenance medication Heart murmur-again recommend echo Thyroid nodule-ultrasound unchanged-repeat in 1 year 06/07/2017 Appointment: Marie Flores WPtel: [phone] [place] (30 min) Complex 06/07/2017 Patient Education: Patient [...] spray. 02/07/2017 Appointment: [facility]rita Ortiz [facility] [phone] [facility] [place] (15 min) Moderate 02/07/2017 Patient Education: Patient Medication Summary Completed 02/07/2017 Patient Education: Obesity Completed 02/07/2017 Visit Plan: Headaches-monitor symptoms and call if symptoms persist Blood pressure controlled Fnruehlidgqtop-wqmlhk-pgzotwd on Synthroid-repeat ultrasound in 6 months to monitor 12/07/2016 Appointment: [facility] [phone] [phone] [place] (30 min) Complex 12/07/2016 Patient Education: [...] dairy-check labs 11/09/2016 Appointment: Marie Flores WPtel: [phone] New Patient 11/09/2016 Patient Education: Patient Medication [...] call if symptoms persist Blood pressure controlled Uwycpiznwhzgop-ultdgj-jrndcsv on Synthroid-repeat ultrasound in 6 months to [...]
--- OUTSIDE RECORDS SUMMARY | 2018-08-15 06:06 | XMS REPORT | CCD ---
Author Author Marie Flores MD, [facility] Address [address] [place] [address] Phone Care Team Providers Care Icd 9 Coder Name Role Phone PP Unavailable CCM Unavailable Summary Purpose Interface Exchange Insurance Providers Payer name Policy type / Coverage type Covered constitution party ID Effective Begin Date Effective End Date UMR Commercial Insurance [id number] Unknown Unknown Family History Family History data not found Social History Social History Element Codes Description Effective Dates Marital status Unknown carolynn 11/09/2016 Number of children Unknown 1 11/09/2016 Employment Unknown Currently employed 11/09/[address]: 5204592 Former smoker quit in 200311/09/[address]: 665895844 Never drinks alcohol 11/09/2016 Allergies, Adverse Reactions, [...] Fill Instructions Keflex 500 mg capsule RxNorm: 418951 1 Capsule(s) PO TID 201712/15/2017 Active Kenalog 40 mg/mL suspension for injection RxNorm: 0662585 1 Milliliter(s) Inj 12/06/2017 12/06/2017 Inactive Zyrtec 10 mg tablet RxNorm: 4308492 1 Tablet(s) PO daily 11/2912/28/2017 Active Flonase Allergy Relief 50 mcg/actuation nasal spray, suspension RxNorm: 5024515 [place] PLACE 1 SPRAY IN EACH NOSTRIL TWO TIMES A DAY 11/2901/27/2018 Active Zithromax Z-Brigido 250 mg tablet RxNorm: 953903 1 Tablet(s) PO daily 11/29/2017 11/28/2017 Inactive Zithromax Z-Brigido 250 mg tablet RxNorm: 647362 1 Tablet(s) PO daily 11/29/2017 12/03/2017 Inactive amitriptyline 50 mg tablet RxNorm: 903003 TAKE ONE TABLET BY MOUTH EVERY NIGHT AT BEDTIME 11/04/2017 10/29/2018 Active Synthroid 88 mcg tablet RxNorm: 634719 1 Tablet(s) PO daily 01/12/2018 Active Synthroid 88 mcg tablet RxNorm: 668707 1 Tablet(s) PO daily 10/14/2017 Inactive Imitrex 25 mg tablet RxNorm: 879640 TAKE ONE TABLET BY MOUTH DAILY NEEDED, MAY REPEAT ONCE 2 HOURS AFTER THE FIRST DOSE IF NEEDED 201612/20/2017 Active amitriptyline 50 mg tablet RxNorm: 682721 1 Tablet(s) PO QHS 10/30/2017 Inactive Flonase Allergy Relief 50 mcg/actuation nasal spray, suspension RxNorm: 1139701 PLACE 1 SPRAY IN EACH NOSTRIL TWO TIMES A DAY 07/31/2017 09/28/2017 Inactive Synthroid 75 mcg tablet RxNorm: 666802 1 Tablet(s) PO daily 07/09/2017 Inactive Synthroid 75 mcg tablet RxNorm: 714392 1 Tablet(s) PO daily 10/14/2017 Inactive amitriptyline 25 mg tablet RxNorm: 230738 1 Tablet(s) PO QHS 08/01/2017 Inactive amitriptyline 25 mg tablet RxNorm: 634680 1 Tablet(s) PO QHS 06/20/2017 Inactive Synthroid 50 mcg tablet RxNorm: 538399 1 Tablet(s) PO daily 07/09/2017 Inactive Imitrex 25 mg tablet RxNorm: 408335 TAKE ONE TABLET BY MOUTH DAILY NEEDED, MAY REPEAT ONCE 2 HOURS AFTER THE FIRST DOSE IF NEEDED 201606/05/2017 Inactive Synthroid 50 mcg tablet RxNorm: 806569 1 Tablet(s) PO daily 03/20/2017 Inactive Synthroid 50 mcg tablet RxNorm: 493212 1 Tablet(s) PO daily 05/20/2017 Inactive Flonase Allergy Relief 50 mcg/actuation nasal spray, suspension RxNorm: 1447132 1 [place] NASAL BID 02/12/20172016 Inactive Kenalog 40 mg/mL suspension for injection RxNorm: 2959063 Milliliter(s) Inj 02/12/2017 02/12/2017 Inactive Zyrtec 10 mg tablet RxNorm: 3522544 1 Tablet(s) PO daily 02/1202/11/2017 Inactive Zyrtec 10 mg tablet RxNorm: 6430379 1 Tablet(s) PO daily 02/1203/13/2017 Inactive amoxicillin 500 mg capsule RxNorm: 308594 1 Capsule(s) PO TID 02/07/2017 02/13/2017 Inactive Imitrex 25 mg tablet RxNorm: 480844 1 Tablet(s) PO daily as needed may repeat dose once 2 hours after the first dose if needed 02/07/2017 05/02/2017 Inactive Synthroid 25 mcg tablet RxNorm: 369319 1 Tablet(s) PO daily 11/21/2016 Inactive Synthroid 25 mcg tablet RxNorm: 661052 1 Tablet(s) PO daily 03/20/2017 Inactive Vitamin C 1,000 mg tablet RxNorm: 281270 1 Tablet(s) PO daily No Start Date Active Multivitamins FC tablet RxNorm: 1 Tablet(s) PO daily No Start Date Active Flonase Allergy Relief 50 mcg/actuation nasal spray, suspension RxNorm: 1382360 1 [place] NASAL BID No Start Date 2016 Inactive Medication Administered Medication Codes Instructions Start Date Status Kenalog 40 mg/mL suspension for injection RxNorm: 8517067 1Milliliter 12/06/2017 Active Kenalog 40 mg/mL suspension for injection RxNorm: 7178648 Millil[place] 02/12/2017 No longer Active Immunizations No [...] hTSH II 5.88 uIU/mL 10/11/2017 Free T4 Qup758 FREE T4 0.77 ng/dL 10/11/2017 Free T4 Thm175 FREE T4 0.71 ng/dL 06/28/2017 Tsh Ord6 hTSH II 5.37 uIU/mL 06/28/2017 Tsh Ord6 hTSH II 10.22 uIU/mL 03/21/2017 Free T4 Tzb756 FREE T4 0.63 ng/dL 03/21/2017 Free T4 Oir186 FREE T4 0.57 ng/dL 11/19/2016 Cbc With [...] 33.9 % 11/16/2016 Cbc With Differential Ord2 [place]% 8.4 % 11/16/2016 Cbc With Differential Ord2 [...] 2.35 K/ul 11/16/2016 Cbc With Differential Ord2 [place] ABS# 0.6 K/ul 11/16/2016 Cbc With Differential Ord2 Eos ABS# 0.1 K/ul 11/16/2016 Cbc With Differential Ord2 Baso ABS# 0.0 K/ul 11/16/2016 Comp Metabolic Npp013 NA 137 mEq/L 11/16/2016 Comp Metabolic Xxt352 K 4.1 mEq/L 11/16/2016 Comp Metabolic Aey090 CL 106 mEq/L 11/16/2016 Comp Metabolic Vyz355 CO2 22.0 mEq/L 11/16/2016 Comp Metabolic Rwh044 ANION GAP 13 11/16/2016 Comp Metabolic Paf708 GLUCOSE 94 mg/dL 11/16/2016 Comp Metabolic Bam031 Creat 0.9 mg/dL 11/16/2016 Comp Metabolic Qsz972 eGFR 72 ml/min/1.73m2 11/16/2016 Comp Metabolic Axn633 BUN 21 mg/dL 11/16/2016 Comp Metabolic Fhe438 B/C Ratio 23.6 Ratio 11/16/2016 Comp Metabolic Lot981 CALCIUM 9.5 mg/dL 11/16/2016 Comp Metabolic Ise795 ALK PHOS 44 U/L 11/16/2016 Comp Metabolic Mye090 AST(SGOT) 13 U/L 11/16/2016 Comp Metabolic Cyy135 ALT(SGPT) 12 U/L 11/16/2016 Comp Metabolic Qxi102 BILI T 0.5 mg/dL 11/16/2016 Comp Metabolic Nux663 ALBUMIN 4.3 g/dL 11/16/2016 Comp Metabolic Ycw474 TPRO 6.8 g/dL 11/16/2016 Comp Metabolic Pmz635 GLOB 2.5 g/dL 11/16/2016 Comp Metabolic Cex087 A/G Ratio 1.7 Ratio 11/16/2016 Comp Metabolic Cwy460 Osmo 277 mOsmo 11/16/2016 Lipid Ord30 CHOL [...] Procedure Codes Date THER/PROPH/DIAG INJ SC/IM CPT-4: 29185 12/06/2017 TRIAMCINOLONE ACET INJ NOS CPT-4: J3301 12/06/2017 TRIAMCINOLONE ACET INJ NOS CPT-4: J3301 02/12/2017 THER/PROPH/DIAG INJ SC/IM CPT-4: 16022 02/12/2017 Vital Signs Date Vital 12/06/2017 Blood Pressure 1: 148/92 Code : 8480-6 BMI: 27.5 Code : 30806-7 Heart Rate 1 : 111 bpm Height: 5'5" SpO2: 98% Weight: 165 lbs 11/08/2017 Blood Pressure 1: 138/62 Code : 8480-6 BMI: 27.5 Code : 87365-6 Heart Rate 1 : 88 bpm Height: 5'5" SpO2: 98% Weight: 165 lbs 10/18/2017 Blood Pressure 1: 136/88 Code : 8480-6 Heart Rate 1: 94 bpm SpO2: 98% 10/11/2017 Blood Pressure 1: 160/80 Code : 8480-6 Blood Pressure 1: 158/88 Code: 8480-6 BMI: 27.6 Code: 02980-2 Heart Rate 1: 94 bpm Height: 5'5" SpO2: 98% Weight: 166 lbs 07/19/2017 Blood Pressure 1: 142/68 Code : 8480-6 BMI: 26.6 Code : 13516-1 Heart Rate 1 : 83 bpm Height: 5'5" SpO2: 98% Weight: 160 lbs 06/07/2017 Blood Pressure 1: 138/78 Code : 8480-6 BMI: 27.0 Code : 73828-8 Heart Rate 1 : 68 bpm Height: 5'5" SpO2: 98% Weight: 162 lbs 02/07/2017 Blood Pressure 1: 134/74 Code : 8480-6 BMI: 27.3 Code : 09679-9 Heart Rate 1 : 72 bpm Height: 5'5" SpO2: 98% Temperature: 37.1 (C) / 98.7 (F) Weight: 164 lbs 12/07/2016 Blood Pressure 1: 134/82 Code : 8480-6 BMI: 27.1 Code : 42362-6 Heart Rate 1 : 90 bpm Height: 5'5" SpO2: 98% Weight: 163 lbs 11/16/2016 Blood Pressure 1: 118/72 Code : 8480-6 11/09/2016 Blood Pressure 1: 140/82 Code : 8480-6 BMI: 27.3 Code : 22076-8 Heart Rate 1 : 79 bpm Height: [...] rhinitis[ICD10: J30.89] [facility] CPT-4: 84624 12/06/2017 06947 EST. PATIENT, LEVEL III Diagnosis: Essential (primary) hypertension[ICD10: I10] [facility] CPT-4: 68608 11/08/2017 ([id number]) 93631 EST. PATIENT, LEVEL I Diagnosis: Essential (primary) hypertension[ICD10: I10] Chaparrita Milner MD, [facility] CPT-4: 49047 10/18/2017 ([id number]) 86801 EST. PATIENT, LEVEL IV Diagnosis: Gastro-esophageal reflux disease without esophagitis[ICD10: K21.9] Diagnosis: Hypothyroidism, unspecified[ICD10: E03.9] Diagnosis: Essential (primary) hypertension[ICD10: I10] Marie Milner MD, [facility] CPT-4: 71182 10/11/2017 ([id number]) 15526 EST. PATIENT, LEVEL III Diagnosis: Headache[ICD10: R51] Marie Milner MD, [facility] CPT-4: 46423 07/19/2017 ([id number]) 43699 EST. PATIENT, LEVEL IV Diagnosis: Headache[ICD10: R51] Diagnosis: Cardiac murmur, unspecified[ICD10: R01.1] Diagnosis: Hypothyroidism, unspecified[ICD10: E03.9] Marie Milner MD, [facility] CPT-4: 07550 06/07/2017 [id number] EST. PATIENT, LEVEL IV Diagnosis: Other acute sinusitis[ICD10: J01.80] Diagnosis: Other allergic rhinitis[ICD10: J30.89] Chaparrita Milner MD, [facility] CPT-4: 93660 02/07/2017 ([id number]) 66189 EST. 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 12/06/2017 Visit Plan: Sinusitis - Pt has acute [...] at home. 11/08/2017 Appointment: Chaparrita Ortiz WPtel: [address] [place], [place] [phone] (15 min) Moderate 11/08/2017 Patient Education: Patient [...] pressure check 10/11/2017 Appointment: Marie Flores WPtel: [phone] [phone] (30 min) Complex 10/11/2017 Patient Education: Patient Medication Summary Completed 10/11/2017 Patient Education: Obesity Completed 10/11/2017 Visit Plan: Headaches-improved with amitriptyline-continue same medications-call if headaches uncontrolled or other concerns. Patient verbalized understanding of plan. 07/19/2017 Appointment: Marie Flores WPtel: [phone] [phone] (15 min) Moderate 07/19/2017 Patient Education: Patient Medication Summary Completed 07/19/2017 Visit Plan: Headaches-stop excedrin x 2 weeks-call in 2 weeks with update-if symptoms persist, consider maintenance medication Heart murmur-again recommend echo Thyroid nodule-ultrasound unchanged-repeat in 1 year 06/07/2017 Appointment: Marie Flores WPtel: [phone] [phone] (30 min) Complex 06/07/2017 Patient Education: Patient [...] spray. 02/07/2017 App[facility]ment[phone] [facility] [place] (15 min) Moderate 02/07/2017 Patient Education: Patient Medication Summary Completed 02/07/2017 Patient Education: Obesity Completed 02/07/2017 Visit Plan: Headaches-monitor symptoms and call if symptoms persist Blood pressure controlled Xtfclcjmkeblts-tledgj-ejullhx on Synthroid-repeat ultrasound in 6 months to monitor 12/07/2016 Appointment: [facility] [phone] [phone] [place] (30 min) Complex 12/07/2016 Patient [...] dairy-check labs 11/09/2016 Appointment: Marie Flores [facility]Ptel[phone] New Patient 11/09/2016 Patient Education: Patient Medication [...] call if symptoms persist Blood pressure controlled Wkmotofgjmjzxk-zimmkc-iwljsvi on Synthroid-repeat ultrasound in 6 months to [...]
--- OUTSIDE RECORDS SUMMARY | 2018-08-15 06:07 | XMS REPORT | CCD ---
Author Author Marie Flores MD, [facility] Address [address] [place] [address] Phone Care Team Providers Care Erp Business Analyst Name Role Phone PP Unavailable CCM Unavailable Summary Purpose Interface Exchange Insurance Providers Payer name Policy type / Coverage type Covered republican ID Effective Begin Date Effective End Date [employer] Commercial Insurance [id number] Unknown Unknown Family History Family History data not found Social History Social History Element Codes Description Effective Dates Marital status Unknown carolynn 11/09/2016 Number of children Unknown 1 11/09/2016 Employment Unknown Currently employed 11/09/[address]: 1424626 Former smoker quit in 200311/09/[address]: 164028489 Never drinks alcohol 11/09/2016 Allergies, Adverse Reactions, [...] Fill Instructions Keflex 500 mg capsule RxNorm: 536962 1 Capsule(s) PO TID 201712/15/2017 Active Kenalog 40 mg/mL suspension for injection RxNorm: 1094035 1 Milliliter(s) Inj 12/06/2017 12/06/2017 Inactive Zyrtec 10 mg tablet RxNorm: 0852865 1 Tablet(s) PO daily 11/2912/28/2017 Active Flonase Allergy Relief 50 mcg/actuation nasal spray, suspension RxNorm: 7859095 [place] PLACE 1 SPRAY IN EACH NOSTRIL TWO TIMES A DAY 11/2901/27/2018 Active Zithromax Z-Brigido 250 mg tablet RxNorm: 577166 1 Tablet(s) PO daily 11/29/2017 11/28/2017 Inactive Zithromax Z-Brigido 250 mg tablet RxNorm: 189791 1 Tablet(s) PO daily 11/29/2017 12/03/2017 Inactive amitriptyline 50 mg tablet RxNorm: 838872 TAKE ONE TABLET BY MOUTH EVERY NIGHT AT BEDTIME 11/04/2017 10/29/2018 Active Synthroid 88 mcg tablet RxNorm: 579760 1 Tablet(s) PO daily 01/12/2018 Active Synthroid 88 mcg tablet RxNorm: 838623 1 Tablet(s) PO daily 10/14/2017 Inactive Imitrex 25 mg tablet RxNorm: 218263 TAKE ONE TABLET BY MOUTH DAILY NEEDED, MAY REPEAT ONCE 2 HOURS AFTER THE FIRST DOSE IF NEEDED 201612/20/2017 Active amitriptyline 50 mg tablet RxNorm: 369175 1 Tablet(s) PO QHS 10/30/2017 Inactive Flonase Allergy Relief 50 mcg/actuation nasal spray, suspension RxNorm: 3671574 PLACE 1 SPRAY IN EACH NOSTRIL TWO TIMES A DAY 07/31/2017 09/28/2017 Inactive Synthroid 75 mcg tablet RxNorm: 286119 1 Tablet(s) PO daily 07/09/2017 Inactive Synthroid 75 mcg tablet RxNorm: 098751 1 Tablet(s) PO daily 10/14/2017 Inactive amitriptyline 25 mg tablet RxNorm: 738862 1 Tablet(s) PO QHS 08/01/2017 Inactive amitriptyline 25 mg tablet RxNorm: 766638 1 Tablet(s) PO QHS 06/20/2017 Inactive Synthroid 50 mcg tablet RxNorm: 924740 1 Tablet(s) PO daily 07/09/2017 Inactive Imitrex 25 mg tablet RxNorm: 247713 TAKE ONE TABLET BY MOUTH DAILY NEEDED, MAY REPEAT ONCE 2 HOURS AFTER THE FIRST DOSE IF NEEDED 201606/05/2017 Inactive Synthroid 50 mcg tablet RxNorm: 033888 1 Tablet(s) PO daily 03/20/2017 Inactive Synthroid 50 mcg tablet RxNorm: 872968 1 Tablet(s) PO daily 05/20/2017 Inactive Flonase Allergy Relief 50 mcg/actuation nasal spray, suspension RxNorm: 6482720 1 [place] NASAL BID 02/12/20172016 Inactive Kenalog 40 mg/mL suspension for injection RxNorm: 5546908 Milliliter(s) Inj 02/12/2017 02/12/2017 Inactive Zyrtec 10 mg tablet RxNorm: 8969480 1 Tablet(s) PO daily 02/1202/11/2017 Inactive Zyrtec 10 mg tablet RxNorm: 1167102 1 Tablet(s) PO daily 02/1203/13/2017 Inactive amoxicillin 500 mg capsule RxNorm: 938661 1 Capsule(s) PO TID 02/07/2017 02/13/2017 Inactive Imitrex 25 mg tablet RxNorm: 943333 1 Tablet(s) PO daily as needed may repeat dose once 2 hours after the first dose if needed 02/07/2017 05/02/2017 Inactive Synthroid 25 mcg tablet RxNorm: 145164 1 Tablet(s) PO daily 11/21/2016 Inactive Synthroid 25 mcg tablet RxNorm: 018368 1 Tablet(s) PO daily 03/20/2017 Inactive Vitamin C 1,000 mg tablet RxNorm: 157167 1 Tablet(s) PO daily No Start Date Active Multivitamins FC tablet RxNorm: 1 Tablet(s) PO daily No Start Date Active Flonase Allergy Relief 50 mcg/actuation nasal spray, suspension RxNorm: 3102740 1 [place] NASAL BID No Start Date 2016 Inactive Medication Administered Medication Codes Instructions Start Date Status Kenalog 40 mg/mL suspension for injection RxNorm: 1917846 1Milliliter 12/06/2017 Active Kenalog 40 mg/mL suspension for injection RxNorm: 8610227 [place] 02/12/2017 No longer Active Immunizations No [...] hTSH II 5.88 uIU/mL 10/11/2017 Free T4 Hgk778 FREE T4 0.77 ng/dL 10/11/2017 Free T4 Pxy210 FREE T4 0.71 ng/dL 06/28/2017 Tsh Ord6 hTSH II 5.37 uIU/mL 06/28/2017 Tsh Ord6 hTSH II 10.22 uIU/mL 03/21/2017 Free T4 Jcf078 FREE T4 0.63 ng/dL 03/21/2017 Free T4 Htj759 FREE T4 0.57 ng/dL 11/19/2016 Cbc With [...] 33.9 % 11/16/2016 Cbc With Differential Ord2 [place]% 8.4 % 11/16/2016 Cbc With Differential Ord2 [...] 2.35 K/ul 11/16/2016 Cbc With Differential Ord2 [place] ABS# 0.6 K/ul 11/16/2016 Cbc With Differential Ord2 Eos ABS# 0.1 K/ul 11/16/2016 Cbc With Differential Ord2 Baso ABS# 0.0 K/ul 11/16/2016 Comp Metabolic Sdz365 NA 137 mEq/L 11/16/2016 Comp Metabolic Jkt409 K 4.1 mEq/L 11/16/2016 Comp Metabolic Lme585 CL 106 mEq/L 11/16/2016 Comp Metabolic Mdm299 CO2 22.0 mEq/L 11/16/2016 Comp Metabolic Mtz307 ANION GAP 13 11/16/2016 Comp Metabolic Bbs014 GLUCOSE 94 mg/dL 11/16/2016 Comp Metabolic Dcy384 Creat 0.9 mg/dL 11/16/2016 Comp Metabolic Zbx573 eGFR 72 ml/min/1.73m2 11/16/2016 Comp Metabolic Nbv814 BUN 21 mg/dL 11/16/2016 Comp Metabolic Ols040 B/C Ratio 23.6 Ratio 11/16/2016 Comp Metabolic Mio459 CALCIUM 9.5 mg/dL 11/16/2016 Comp Metabolic Hxx067 ALK PHOS 44 U/L 11/16/2016 Comp Metabolic Cur370 AST(SGOT) 13 U/L 11/16/2016 Comp Metabolic Abh281 ALT(SGPT) 12 U/L 11/16/2016 Comp Metabolic Egc789 BILI T 0.5 mg/dL 11/16/2016 Comp Metabolic Xnw108 ALBUMIN 4.3 g/dL 11/16/2016 Comp Metabolic Elz161 TPRO 6.8 g/dL 11/16/2016 Comp Metabolic Kar029 GLOB 2.5 g/dL 11/16/2016 Comp Metabolic Qmc232 A/G Ratio 1.7 Ratio 11/16/2016 Comp Metabolic Mxg460 Osmo 277 mOsmo 11/16/2016 Lipid Ord30 CHOL [...] Procedure Codes Date THER/PROPH/DIAG INJ SC/IM CPT-4: 06415 12/06/2017 TRIAMCINOLONE ACET INJ NOS CPT-4: J3301 12/06/2017 TRIAMCINOLONE ACET INJ NOS CPT-4: J3301 02/12/2017 THER/PROPH/DIAG INJ SC/IM CPT-4: 82662 02/12/2017 Vital Signs Date Vital 12/06/2017 Blood Pressure 1: 148/92 Code : 8480-6 BMI: 27.5 Code : 01976-8 Heart Rate 1 : 111 bpm Height: 5'5" SpO2: 98% Weight: 165 lbs 11/08/2017 Blood Pressure 1: 138/62 Code : 8480-6 BMI: 27.5 Code : 23467-8 Heart Rate 1 : 88 bpm Height: 5'5" SpO2: 98% Weight: 165 lbs 10/18/2017 Blood Pressure 1: 136/88 Code : 8480-6 Heart Rate 1: 94 bpm SpO2: 98% 10/11/2017 Blood Pressure 1: 160/80 Code : 8480-6 Blood Pressure 1: 158/88 Code: 8480-6 BMI: 27.6 Code: 89801-7 Heart Rate 1: 94 bpm Height: 5'5" SpO2: 98% Weight: 166 lbs 07/19/2017 Blood Pressure 1: 142/68 Code : 8480-6 BMI: 26.6 Code : 05734-3 Heart Rate 1 : 83 bpm Height: 5'5" SpO2: 98% Weight: 160 lbs 06/07/2017 Blood Pressure 1: 138/78 Code : 8480-6 BMI: 27.0 Code : 46401-2 Heart Rate 1 : 68 bpm Height: 5'5" SpO2: 98% Weight: 162 lbs 02/07/2017 Blood Pressure 1: 134/74 Code : 8480-6 BMI: 27.3 Code : 39703-6 Heart Rate 1 : 72 bpm Height: 5'5" SpO2: 98% Temperature: 37.1 (C) / 98.7 (F) Weight: 164 lbs 12/07/2016 Blood Pressure 1: 134/82 Code : 8480-6 BMI: 27.1 Code : 34293-7 Heart Rate 1 : 90 bpm Height: 5'5" SpO2: 98% Weight: 163 lbs 11/16/2016 Blood Pressure 1: 118/72 Code : 8480-6 11/09/2016 Blood Pressure 1: 140/82 Code : 8480-6 BMI: 27.3 Code : 61837-0 Heart Rate 1 : 79 bpm Height: [...] rhinitis[ICD10: J30.89] [facility] CPT-4: 51410 12/06/2017 [id number] EST. PATIENT, LEVEL III Diagnosis: Essential (primary) hypertension[ICD10: I10] [facility] CPT-4: 03733 11/08/2017 ([id number]) 25078 EST. PATIENT, LEVEL I Diagnosis: Essential (primary) hypertension[ICD10: I10] Chaparrita Milner MD, [facility] CPT-4: 76371 10/18/2017 ([id number]) 36141 EST. PATIENT, LEVEL IV Diagnosis: Gastro-esophageal reflux disease without esophagitis[ICD10: K21.9] Diagnosis: Hypothyroidism, unspecified[ICD10: E03.9] Diagnosis: Essential (primary) hypertension[ICD10: I10] Marie Milner MD, [facility] CPT-4: 33882 10/11/2017 ([id number]) 45572 EST. PATIENT, LEVEL III Diagnosis: Headache[ICD10: R51] Marie Milner MD, [facility] CPT-4: 09568 07/19/2017 ([id number]) 76425 EST. PATIENT, LEVEL IV Diagnosis: Headache[ICD10: R51] Diagnosis: Cardiac murmur, unspecified[ICD10: R01.1] Diagnosis: Hypothyroidism, unspecified[ICD10: E03.9] Marie Milner MD, [facility] CPT-4: 43373 06/07/2017 [id number] EST. PATIENT, LEVEL IV Diagnosis: Other acute sinusitis[ICD10: J01.80] Diagnosis: Other allergic rhinitis[ICD10: J30.89] Chaparrita Milner MD, [facility] CPT-4: 42176 02/07/2017 ([id number]) 11823 EST. 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 11/08/2017 Appointment: Chaparrit[facility] Ortiz [facility]el[facility] (15 min) Moderate 11/08/2017 Patient Education: Patient [...] pressure check 10/11/2017 Appointment: Marie Flores [phone] (30 min) Complex 10/11/2017 Patient Education: Patient Medication Summary Completed 10/11/2017 Patient Education: Obesity Completed 10/11/2017 Visit Plan: Headaches-improved with amitriptyline-continue same medications-call if headaches uncontrolled or other concerns. Patient verbalized understanding of plan. 07/19/2017 Appointment: Marie Flores WPtel: [phone] [phone] (15 min) Moderate 07/19/2017 Patient Education: Patient Medication Summary Completed 07/19/2017 Visit Plan: Headaches-stop excedrin x 2 weeks-call in 2 weeks with update-if symptoms persist, consider maintenance medication Heart murmur-again recommend echo Thyroid nodule-ultrasound unchanged-repeat in 1 year 06/07/2017 Appointment: Marie Flores WPtel: [phone] [phone] (30 min) Complex 06/07/2017 Patient Education: Patient [...] spray. 02/07/2017 Appointment: [facility]rita Ortiz [facility] [phone] [facility] [place] (15 min) Moderate 02/07/2017 Patient Education: Patient Medication Summary Completed 02/07/2017 Patient Education: Obesity Completed 02/07/2017 Visit Plan: Headaches-monitor symptoms and call if symptoms persist Blood pressure controlled Swdfdpgsjsxmyy-ytylxd-kprcwyb on Synthroid-repeat ultrasound in 6 months to monitor 12/07/2016 Appointment: Marie Flores WPtel: [phone] [place] (30 min) Complex 12/07/2016 Patient Education: [...] dairy-check labs 11/09/2016 Appointment: Marie Flores WPtel: [phone] [place] New Patient 11/09/2016 Patient Education: Patient [...] call if symptoms persist Blood pressure controlled Ankovqusvvvoxt-wbeftx-jkfvyjr on Synthroid-repeat ultrasound in 6 months to [...]
--- OUTSIDE RECORDS SUMMARY | 2018-08-15 06:08 | XMS REPORT | CCD ---
Author Author Marie Flores MD, [facility] Address [address] [place] [address] Phone Care Team Providers Care Psychiatric Attendant Name Role Phone PP Unavailable CCM Unavailable Summary Purpose Interface Exchange Insurance Providers Payer name Policy type / Coverage type Covered alliance party ID Effective Begin Date Effective End Date [employer]MR Commercial Insurance [id number] Unknown Unknown Family History Family History data not found Social History Social History Element Codes Description Effective Dates Marital status Unknown carolynn 11/09/2016 Number of children Unknown 1 11/09/2016 Employment Unknown Currently employed 11/09/[address]: 7688280 Former smoker quit in 200311/09/[address]: 156914160 Never drinks alcohol 11/09/2016 Allergies, Adverse Reactions, [...] Fill Instructions amitriptyline 50 mg tablet RxNorm: 970050 TAKE ONE TABLET BY MOUTH EVERY NIGHT AT BEDTIME 11/04/2017 10/29/2018 Active Synthroid 88 mcg tablet RxNorm: 891567 1 Tablet(s) PO daily 01/12/2018 Active Synthroid 88 mcg tablet RxNorm: 727211 1 Tablet(s) PO daily 10/14/2017 Inactive Imitrex 25 mg tablet RxNorm: 390969 TAKE ONE TABLET BY MOUTH DAILY NEEDED, MAY REPEAT ONCE 2 HOURS AFTER THE FIRST DOSE IF NEEDED 201612/20/2017 Active amitriptyline 50 mg tablet RxNorm: 385398 1 Tablet(s) PO QHS 10/30/2017 Inactive Flonase Allergy Relief 50 mcg/actuation nasal spray, suspension RxNorm: 9512637 PLACE 1 SPRAY IN EACH NOSTRIL TWO TIMES A DAY 07/31/2017 09/28/2017 Inactive Synthroid 75 mcg tablet RxNorm: 574398 1 Tablet(s) PO daily 07/09/2017 Inactive Synthroid 75 mcg tablet RxNorm: 244140 1 Tablet(s) PO daily 10/14/2017 Inactive amitriptyline 25 mg tablet RxNorm: 737512 1 Tablet(s) PO QHS 08/01/2017 Inactive amitriptyline 25 mg tablet RxNorm: 663835 1 Tablet(s) PO QHS 06/20/2017 Inactive Synthroid 50 mcg tablet RxNorm: 761473 1 Tablet(s) PO daily 07/09/2017 Inactive Imitrex 25 mg tablet RxNorm: 358723 TAKE ONE TABLET BY MOUTH DAILY NEEDED, MAY REPEAT ONCE 2 HOURS AFTER THE FIRST DOSE IF NEEDED 201606/05/2017 Inactive Synthroid 50 mcg tablet RxNorm: 455740 1 Tablet(s) PO daily 03/20/2017 Inactive Synthroid 50 mcg tablet RxNorm: 406064 1 Tablet(s) PO daily 05/20/2017 Inactive Flonase Allergy Relief 50 mcg/actuation nasal spray, suspension RxNorm: 4952111 1 [place] NASAL BID 02/12/20172016 Inactive Kenalog 40 mg/mL suspension for injection RxNorm: 5213699 Milliliter(s) Inj 02/12/2017 02/12/2017 Inactive Zyrtec 10 mg tablet RxNorm: 9907899 1 Tablet(s) PO daily 02/1202/11/2017 Inactive Zyrtec 10 mg tablet RxNorm: 9591707 1 Tablet(s) PO daily 02/1203/13/2017 Inactive amoxicillin 500 mg capsule RxNorm: 793672 1 Capsule(s) PO TID 02/07/2017 02/13/2017 Inactive Imitrex 25 mg tablet RxNorm: 018257 1 Tablet(s) PO daily as needed may repeat dose once 2 hours after the first dose if needed 02/07/2017 05/02/2017 Inactive Synthroid 25 mcg tablet RxNorm: 017636 1 Tablet(s) PO daily 11/21/2016 Inactive Synthroid 25 mcg tablet RxNorm: 391452 1 Tablet(s) PO daily 03/20/2017 Inactive Vitamin C 1,000 mg tablet RxNorm: 264335 1 Tablet(s) PO daily No Start Date Active Multivitamins FC tablet RxNorm: 1 Tablet(s) PO daily No Start Date Active Flonase Allergy Relief 50 mcg/actuation nasal spray, suspension RxNorm: 4895838 1 [place] NASAL BID No Start Date 2016 Inactive Medication Administered Medication Codes Instructions Start Date Status Kenalog 40 mg/mL suspension for injection RxNorm: 2994584 Milliliter 02/12/2017 No longer Active Immunizations No [...] hTSH II 5.88 uIU/mL 10/11/2017 Free T4 Rli598 FREE T4 0.77 ng/dL 10/11/2017 Free T4 Xux017 FREE T4 0.71 ng/dL 06/28/2017 Tsh Ord6 hTSH II 5.37 uIU/mL 06/28/2017 Tsh Ord6 hTSH II 10.22 uIU/mL 03/21/2017 Free T4 Fte088 FREE T4 0.63 ng/dL 03/21/2017 Free T4 Nac572 FREE T4 0.57 ng/dL 11/19/2016 Cbc With Differential Ord2 WBC 6.93 K/ul 11/16/2016 Cbc With Differential Ord2 RBC 4.59 M/ul 11/16/2016 Cbc With Differential Ord2 HGB 14.2 g/dl 11/16/2016 Cbc With Differential Ord2 Neut% 55.5 % 11/16/2016 Cbc With Differential Ord2 HCT 42.5 % 11/16/2016 Cbc With Differential Ord2 MCV 92.6 fl 11/16/2016 Cbc With Differential Ord2 Lymph% 33.9 % 11/16/2016 Cbc With Differential Ord2 MCH 30.9 pg 11/16/2016 Cbc With Differential Ord2 [place]% 8.4 % 11/16/2016 Cbc With Differential Ord2 MCHC 33.4 pg 11/16/2016 Cbc With Differential Ord2 Eos% 1.9 % 11/16/2016 Cbc With Differential Ord2 PLT 262 K/ul 11/16/2016 Cbc With Differential Ord2 Baso% 0.3 % 11/16/2016 Cbc With Differential Ord2 Neut ABS# 3.85 K/ul 11/16/2016 Cbc With Differential Ord2 RDW 13.6 % 11/16/2016 Cbc With Differential Ord2 Lymph ABS# 2.35 K/ul 11/16/2016 Cbc With Differential Ord2 [place] ABS# 0.6 K/ul 11/16/2016 Cbc With Differential Ord2 Eos ABS# 0.1 K/ul 11/16/2016 Cbc With Differential Ord2 Baso ABS# 0.0 K/ul 11/16/2016 Comp Metabolic Uwm610 NA 137 mEq/L 11/16/2016 Comp Metabolic Cuv587 K 4.1 mEq/L 11/16/2016 Comp Metabolic Bko559 CL 106 mEq/L 11/16/2016 Comp Metabolic Ehx819 CO2 22.0 mEq/L 11/16/2016 Comp Metabolic Hxq903 ANION GAP 13 11/16/2016 Comp Metabolic Ias541 GLUCOSE 94 mg/dL 11/16/2016 Comp Metabolic Zzx122 Creat 0.9 mg/dL 11/16/2016 Comp Metabolic Ckm607 eGFR 72 ml/min/1.73m2 11/16/2016 Comp Metabolic Xha343 BUN 21 mg/dL 11/16/2016 Comp Metabolic Gio102 B/C Ratio 23.6 Ratio 11/16/2016 Comp Metabolic Dqe089 CALCIUM 9.5 mg/dL 11/16/2016 Comp Metabolic Zgy201 ALK PHOS 44 U/L 11/16/2016 Comp Metabolic Ayn013 AST(SGOT) 13 U/L 11/16/2016 Comp Metabolic Fjy713 ALT(SGPT) 12 U/L 11/16/2016 Comp Metabolic Tzn163 BILI T 0.5 mg/dL 11/16/2016 Comp Metabolic Emm685 ALBUMIN 4.3 g/dL 11/16/2016 Comp Metabolic Uek972 TPRO 6.8 g/dL 11/16/2016 Comp Metabolic Suh502 GLOB 2.5 g/dL 11/16/2016 Comp Metabolic Xfj267 A/G Ratio 1.7 Ratio 11/16/2016 Comp Metabolic Upq489 Osmo 277 mOsmo 11/16/2016 Lipid Ord30 CHOL [...] CPT-4: J3301 02/12/2017 THER/PROPH/DIAG INJ SC/IM CPT-4: 36202 02/12/2017 Vital Signs Date Vital 11/08/2017 Blood Pressure 1: 138/62 Code : 8480-6 BMI: 27.5 Code : 38296-6 Heart Rate 1 : 88 bpm Height: 5'5" SpO2: 98% Weight: 165 lbs 10/18/2017 Blood Pressure 1: 136/88 Code : 8480-6 Heart Rate 1: 94 bpm SpO2: 98% 10/11/2017 Blood Pressure 1: 160/80 Code : 8480-6 Blood Pressure 1: 158/88 Code: 8480-6 BMI: 27.6 Code: 84249-9 Heart Rate 1: 94 bpm Height: 5'5" SpO2: 98% Weight: 166 lbs 07/19/2017 Blood Pressure 1: 142/68 Code : 8480-6 BMI: 26.6 Code : 34626-7 Heart Rate 1 : 83 bpm Height: 5'5" SpO2: 98% Weight: 160 lbs 06/07/2017 Blood Pressure 1: 138/78 Code : 8480-6 BMI: 27.0 Code : 56937-2 Heart Rate 1 : 68 bpm Height: 5'5" SpO2: 98% Weight: 162 lbs 02/07/2017 Blood Pressure 1: 134/74 Code : 8480-6 BMI: 27.3 Code : 29682-5 Heart Rate 1 : 72 bpm Height: 5'5" SpO2: 98% Temperature: 37.1 (C) / 98.7 (F) Weight: 164 lbs 12/07/2016 Blood Pressure 1: 134/82 Code : 8480-6 BMI: 27.1 Code : 48830-6 Heart Rate 1 : 90 bpm Height: 5'5" SpO2: 98% Weight: 163 lbs 11/16/2016 Blood Pressure 1: 118/72 Code : 8480-6 11/09/2016 Blood Pressure 1: 140/82 Code : 8480-6 BMI: 27.3 Code : 07501-2 Heart Rate 1 : 79 bpm Height: [...] Essential (primary) hypertension[ICD10: I10] Chaparrita Milner MD, [facility] CPT-4: 71164 11/08/2017 [id number]) 44826 EST. PATIENT, LEVEL I Diagnosis: Essential (primary) hypertension[ICD10: I10] [facility] CPT-4: 71608 10/18/2017 [id number] 64425 EST. PATIENT, LEVEL IV Diagnosis: Gastro-esophageal reflux disease without esophagitis[ICD10: K21.9] Diagnosis: Hypothyroidism, unspecified[ICD10: E03.9] Diagnosis: Essential (primary) hypertension[ICD10: I10] [facility] CPT-4: 49107 10/11/2017 [id number] 54889 EST. PATIENT, LEVEL III Diagnosis: Headache[ICD10: R51] [facility] CPT-4: 18063 07/19/2017 ([id number]) 39801 EST. PATIENT, LEVEL IV Diagnosis: Headache[ICD10: R51] Diagnosis: Cardiac murmur, unspecified[ICD10: R01.1] Diagnosis: Hypothyroidism, unspecified[ICD10: E03.9] Marie Milner MD, [facility] CPT-4: 42918 06/07/2017 74588 EST. PATIENT, LEVEL IV Diagnosis: Other acute sinusitis[ICD10: J01.80] Diagnosis: Other allergic rhinitis[ICD10: J30.89] Chaparrita Milner MD, [facility] CPT-4: 81473 02/07/2017 ([id number]) 69391 EST. 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 Pt has been encouraged to exercise daily. The pt has been advised to call the office if there are any acute concerns about change in blood pressure readings at home. 11/08/2017 Appointment: Chaparrita Ortiz WPtel: [address] [place], [place] [address] (15 min) Moderate 11/08/2017 Patient Education: Patient [...] pressure check 10/11/2017 Appointment: Marie Flores WPtel: [phone] (30 min) Complex 10/11/2017 Patient Education: Patient Medication Summary Completed 10/11/2017 Patient Education: Obesity Completed 10/11/2017 Visit Plan: Headaches-improved with amitriptyline-continue same medications-call if headaches uncontrolled or other concerns. Patient verbalized understanding of plan. 07/19/2017 Appointment: Marie Flores WPtel: [phone] (15 min) Moderate 07/19/2017 Patient Education: Patient Medication Summary Completed 07/19/2017 Visit Plan: Headaches-stop excedrin x 2 weeks-call in 2 weeks with update-if symptoms persist, consider maintenance medication Heart murmur-again recommend echo Thyroid nodule-ultrasound unchanged-repeat in 1 year 06/07/2017 Appointment: Marie Flores WPtel: [phone] (30 min) Complex 06/07/2017 Patient Education: [...] allergy spray. 02/07/2017 [phone] [place] (15 min) Moderate 02/07/2017 Patient Education: Patient Medication Summary Completed 02/07/2017 Patient Education: Obesity Completed 02/07/2017 Visit Plan: Headaches-monitor symptoms and call if symptoms persist Blood pressure controlled Yiobdjidylegyf-isqsrn-julqvko on Synthroid-repeat ultrasound in 6 months to monitor 12/07/2016 [facility]ment: [phone] [place] (30 min) Complex 12/07/2016 Patient [...] labs 11/09/2016 [facility]ment: [phone] [place] New Patient 11/09/2016 Patient Education: [...] call if symptoms persist Blood pressure controlled Nqnedzwdilfvuo-zbguiz-qxvfdnn on Synthroid-repeat ultrasound in 6 months to [...]
[2018-08-15] MEDS ORDERED: ceFAZolin 2 GM IV Premixed 50 ML IV ONE (06:15)
[2018-08-15] MEDS: LACTATED RINGERS 1,000 ML IV PRN ×3 (06:31→10:15)
[2018-08-15 06:33] VITALS: BP 128/83
[2018-08-15] MEDS ORDERED: ONDANSETRON 4 MG/2 ML (SDV) Z0FRAN ONE ×2 (06:50→10:12)
[2018-08-15] MEDS ORDERED: LIDOCAINE PF 2% 5 ML (XYLOCAINE) VIAL ONE (06:50)
[2018-08-15] MEDS ORDERED: DEXAMETHASONE 10 MG/ML (DECADRON) 1 ML VIAL ONE (06:50)
[2018-08-15] MEDS ORDERED: fentaNYL INJECTION 100 MCG/2 ML AMP ONE ×3 (06:50→10:12)
[2018-08-15] MEDS ORDERED: proPOfol 200 MG/20 ML (DIPRIVAN) VIAL IV ONE (06:50)
[2018-08-15 06:51] LABS: BASOPHILS % (AUTO) 1 % (0-10); EOSINOPHILS # (AUTO) 0.2 10^3/uL (0.0-0.3); EOSINOPHILS % (AUTO) 3 % (0-10); HEMATOCRIT 37 % (35-52); HEMOGLOBIN 12.7 G/DL (11.5-16.0); LYMPHOCYTES # (AUTO) 1.9 X 10^3 (1.0-4.0); LYMPHOCYTES % (AUTO) 35 % (12-44); MEAN CORPUSCULAR HEMOGLOBIN 31 PG (25-34); MEAN CORPUSCULAR HGB CONC 34 G/DL (32-36); MEAN CORPUSCULAR VOLUME 90 FL (80-99); MEAN PLATELET VOLUME 9.8 FL (7.4-10.4); MONOCYTES # (AUTO) 0.4 X 10^3 (0.0-1.0); MONOCYTES % (AUTO) 8 % (0-12); NEUTROPHILS % (AUTO) 54 % (42-75); PLATELET COUNT 351 10^3/uL (130-400); RED CELL DISTRIBUTION WIDTH 12.7 % (10.0-14.5); WHITE BLOOD COUNT 5.6 10^3/uL (4.3-11.0)
[2018-08-15] MEDS ORDERED: MIDAZOLAM 2 MG/2 ML (VERSED) VIAL ONE (06:51)
[2018-08-15] MEDS ORDERED: SEVOFLURANE (ULTANE) 15 ML INHAL SOLN ONE ×7 (07:00→09:49)
[2018-08-15 07:12] LABS: BUN/CREATININE RATIO 27; CALCIUM 8.9 MG/DL (8.5-10.1); CARBON DIOXIDE 18 MMOL/L (21-32); CHLORIDE 110 MMOL/L (98-107); CREATININE SERUM 0.95 MG/DL (0.60-1.30); GFR ESTIMATED > 60; GLUCOSE 111 MG/DL (70-105); SODIUM 139 MMOL/L (135-145)
[2018-08-15] MEDS ORDERED: THROMBIN SPRAY KIT 5,000 UNIT VIAL ONE (07:13)
[2018-08-15] MEDS ORDERED: BUP/EPI 0.5% 1:200,000 (SENSORCAINE) 30 ML VIAL ONE (07:13)
[2018-08-15] MEDS ORDERED: SUCCINYLCHOLINE INJ 100 MG/5 ML SYR ONE (07:24)
--- NOTE | 2018-08-15 07:51 | Progress Note-Pre Operative ---
Pre-Operative Progress Note H&P Reviewed The H&P was reviewed, patient examined and no changes noted. Date Seen by Provider: Jul 03, 2018 Time Seen by Provider: 11:20 Date H&P Reviewed: Aug 15, 2018 Time H&P Reviewed: 07:50 Pre-Operative Diagnosis: Bilateral thyroid nodules DERECK POWELL MD Aug 15, 2018 07:50
[2018-08-15] MEDS ORDERED: PHENYLEPHRINE INJ 10 MG/ML (NEO-SYNEPHRINE 1%) ONE (09:37)
[2018-08-15] MEDS ORDERED: HYDROmorphone 2 MG/ML VIAL (DILAUDID) ONE (10:12)
[2018-08-15] MEDS ORDERED: morphine INJ 10 MG/ML 1ML (SYR OR VIAL) ONE (10:12)
[2018-08-15] MEDS ORDERED: LACTATED RINGERS 1,000 ML IV SCH (10:20)
--- NOTE | 2018-08-15 10:20 | Operative Report ---
Operative Report Date of Procedure/Surgery Aug 15, 2018 Surgeon (s) DERECK POWELL MD Hand Braille Transcriber (s): Joe Watkins (Med Student III) Post-Operative Diagnosis same Procedure Performed total thyroidectomy Intraoperative nerve monitoring excision of right pretracheal lymph node Description of Procedure Anesthesia Type: General Estimated blood loss (mL): 50 mL Specimen(s) collected/removed both lobes of thyroid with a right pretracheal lymph node Description of the Procedure Indication for the procedure: This lady presented with large, bilateral thyroid nodules. Due to her symptoms, it was felt reasonable to proceed with total thyroidectomy, avoiding FNA. It is notable that she has been hypothyroid and therefore it is likely that the condition may be Walker's thyroiditis. Informed consent was obtained after reviewing the operative details and complications of postoperative hematoma, transient hoarseness of voice and hypocalcemia. Description of procedure: She was placed supine on the operative table and general anesthesia induced. 2 grams of Ancef were administered intravenously as prophylaxis against wound infection. Sequential compression devices were placed around her legs, to minimize the risk of venous thrombosis. Her neck and upper chest were prepared and draped in the usual sterile manner. Preemptive analgesia was established using 0.5 percent Marcaine with epinephrine. A 3.5 cm transverse incision was made along the skin crease of the neck and platysma incised transversely. Flaps were raised superiorly to the level of the thyroid cartilage and inferiorly to the sternal notch.cervical fascia was incised vertically and the strap muscles were retracted laterally. I began the dissection on the left side. A large lobe with multiple nodules came into view. A distinct middle thyroid vein was identified and controlled between 2-0 silk sutures. Superior thyroid artery was controlled between 0 silk sutures, reinforced with a Ligaclip. Branches of the inferior thyroid artery were controlled using a combination of ligaclips and Harmonic scalpel. Recurrent laryngeal nerve was identified and preserved by constant visual inspection and intermittent nerve stimulation technique. Both parathyroid glands were identified and preserved, along with their blood supply. The isthmus was then divided and the left lobe sent separately for formal histological examination. A similar dissection was performed on the right side. A right pretracheal lymph node was identified and subjected to frozen section examination to ensure that it was not parathyroid tissue. It was confirmed to be a lymph node and sent separately for histology.. Recurrent laryngeal nerve was found in its conventional position and preserved using visual inspection and intermittent nerve stimulation technique. Both parathyroid glands were identified and preserved, with their blood supply. We had the anesthesiologist conduct Valsalva maneuver, looking for venous bleeding. A few areas were encountered, close to the recurrent laryngeal nerve and carefully controlled using ligaclips, protecting the nerve using intermittent stimulation technique. The neck was then flexed in preparation for closure. Prior to this,Gelfoam soaked in thrombin solution was placed along the tracheo-esophageal groove, to optimize hemostasis. Cervical fascia was approximated using 2-0 Vicryl and platysma using 3-0 Vicryl. Skin was closed using 4-0 Vicryl, in a subcuticular fashion. She tolerated the procedure well, was extubated in the operating room and taken to the recovery room in a stable condition. Findings of the Procedure see operative report Allergies and Home Medications Allergies Coded Allergies: No Known Drug Allergies (Unverified , 08/12/18) Home Medications Amitriptyline HCl 50 Mg Tablet, 50 MG PO HS, (Reported) Levothyroxine Sodium 112 Mcg Tablet, 112 MCG PO DAILY, (Reported) Lisinopril 10 Mg Tablet, 10 MG PO DAILY, (Reported) Patient Home Medication List Home Medication List Reviewed: Yes DERECK POWELL MD Aug 15, 2018 10:20
[2018-08-15] MEDS ORDERED: OXYC1TAB87 PO (10:26)
--- NOTE | 2018-08-15 10:26 | Discharge Inst-Simple/Standard ---
Discharge Inst-Standard Discharge Medications New, Converted or Re-Newed RX: RX on Chart Patient Instructions/Follow Up Plan of Care/Instructions/FU: dressings off in a.m. Incentive spirometry. Follow-up in 3 weeks. Activity as Tolerated: Yes Discharge Diet: No Restrictions DERECK POWELL MD Aug 15, 2018 10:26
[2018-08-15] MEDS ORDERED: HYDROcodone/APAP 5 MG/325 MG (LORTAB) TAB PO PRN (10:30)
[2018-08-15] MEDS ORDERED: fentaNYL INJECTION 100 MCG/2 ML AMP IVP ONE (10:30)
[2018-08-15] MEDS ORDERED: oxyCODONE/APAP 5/325MG (PERCOCET 5) TABLET PO PRN (10:30)
[2018-08-15] MEDS ORDERED: ONDANSETRON 4 MG/2 ML (SDV) Z0FRAN IVP PRN ×2 (10:30)
[2018-08-15] MEDS ORDERED: morphine INJ 10 MG/ML 1ML (SYR OR VIAL) IVP ONE (10:30)
[2018-08-15] MEDS ORDERED: HYDROmorphone 2 MG/ML VIAL (DILAUDID) IV ONE (10:30)
--- NOTE | 2018-08-15 11:19 | Anesthesia-General Post-Op ---
General Patient Condition Mental Status/LOC: Same as Preop Cardiovascular: Satisfactory Nausea/Vomiting: Absent Respiratory: Satisfactory Pain: Controlled Complications: Absent Post Op Complications Complications None Follow Up Care/Instructions Patient Instructions None needed. Anesthesia/Patient Condition Patient Condition Patient is doing well, no complaints, stable vital signs, no apparent adverse anesthesia problems. No complications reported per nursing. MARY ROMERO CRNA Aug 15, 2018 11:19
[2018-08-15 11:45] VITALS: BP 127/72
[2018-08-15] MEDS: fentaNYL INJECTION 100 MCG/2 ML AMP IVP PRN ×2 (12:06→20:34)
[2018-08-15] MEDS ORDERED: CATHETER FLUSH 10 ML SYR IV PRN (14:00)
[2018-08-15] MEDS ORDERED: FLU QUADRIvalent (5+ YOA) 2018-2019 (AFLURIA) 0.5 ML IM ONE (14:00)
[2018-08-15] MEDS ORDERED: ACETAMINOPHEN 500 MG TAB (TYLENOL) PO PRN (14:45)
[2018-08-15 16:20] VITALS: BP 121/63
[2018-08-15] MEDS: CALCIUM CARB + VIT D 600 MG (CALCARB + D) TAB PO SCH (17:21)
[2018-08-15 19:30] VITALS: BP 131/72
[2018-08-16] VITALS: BP 145/78
[2018-08-16 04:00] VITALS: BP 130/68
[2018-08-16] MEDS: CALCIUM CARB + VIT D 600 MG (CALCARB + D) TAB PO SCH (06:10)
[2018-08-16 08:00] VITALS: BP 134/71
[2018-08-16 08:02] LABS: BUN/CREATININE RATIO 17; CARBON DIOXIDE 21 MMOL/L (21-32); CHLORIDE 108 MMOL/L (98-107); CREATININE SERUM 0.78 MG/DL (0.60-1.30); GFR ESTIMATED > 60; GLUCOSE 110 MG/DL (70-105); POTASSIUM 3.4 MMOL/L (3.6-5.0); SODIUM 138 MMOL/L (135-145)
[2018-08-16] MEDS ORDERED: KCL 20 MEQ TAB (K-DUR) PO NR (09:07)
[2018-08-16] MEDS ORDERED: ACHD5005 PO ×2 (11:38→11:44)
[2018-08-16 12:10] VITALS: BP 134/71
--- NOTE | 2018-08-16 12:13 | Progress Note-Standard ---
Standard Progress Note Progress Notes/Assess & Plan Date Seen by a Provider: Aug 16, 2018 Time Seen by a Provider: 11:25 Progress/Assessment & Plan doing well. Calcium normal. Hypokalemia this morning, replaced. Incision dry. Vocal cord function normal. Discharge home. Final Diagnosis multinodular goiter DERECK POWELL MD Aug 16, 2018 12:13
== END 2018-08-16 12:10 | disposition home or self-care (01) ==
LOC: SDC 05:59 → 4TH 11:20 → SDC 08-16 12:10
PROVIDERS: ATTEND Surgery
DX: E06.3 Autoimmune thyroiditis (principal); E87.6 Hypokalemia; I10 Essential (primary) hypertension; R01.1 Cardiac murmur, unspecified; K21.9 Gastro-esophageal reflux disease without esophagitis; Z87.891 Personal history of nicotine dependence; Z79.899 Other long term (current) drug therapy
CPT/HCPCS: 36415; 80048; 84703; 85025; 87081; 88305; 88307; 88331; 94664

== ENCOUNTER 2019-07-13 05:08 | Emergency (ER) | payer OTHER ==
[~2019-07-13] VITALS: Ht 165 cm; Wt 77.0 kg
[~2019-07-13 05:08] MED LIST changes: +ACHD5005 PO; +OXYC1TAB87 PO
[2019-07-13 05:25] LABS: BILIRUBIN,URINE NEGATIVE (NEGATIVE); CLARITY,URINE CLEAR; COLOR,URINE YELLOW; GLUCOSE, URINE (UA) NEGATIVE (NEGATIVE); KETONES,URINE NEGATIVE (NEGATIVE); LEUKOCYTE ESTERASE ,URINE 2+ (NEGATIVE); NITRITE,URINE NEGATIVE (NEGATIVE); PH,URINE 5 (5-9); PROTEIN,URINE 2+ (NEGATIVE); UROBILINOGEN,URINE NORMAL (NORMAL)
[2019-07-13] MEDS ORDERED: ONDANSETRON 4 MG/2 ML (SDV) Z0FRAN IVP ONE (05:30)
[2019-07-13] MEDS ORDERED: KETOROLAC 30 MG/ML VIAL IVP ONE (05:30)
--- NOTE | 2019-07-13 05:31 | ED Abdominal Pain ---
General Chief Complaint: Abdominal/GI Problems Stated Complaint: LOWER BACK PAIN, THROWING UP Source of Information: Patient, Spouse Exam Limitations: No Limitations (LEATHA GLORIA) History of Present Illness Date Seen by Provider: Jul 13, 2019 Time Seen by Provider: 05:19 Initial Comments Patient presents the ER by private conveyance of pain in her right lower quadrant, side and flank. Pain started around 3:00 approximately 2 hours ago. She's not taken anything for the pain or nausea. There is no position it's more comfortable. She has no dysuria, hematuria, history of kidney stones, kidney infection. No fevers, chills (LEATHA GLORIA) Allergies and Home Medications Allergies Coded Allergies: hydrocodone (Verified Adverse Reaction, Unknown, 07/13/19) CAUSES MIGRAINE Home Medications Amitriptyline HCl 50 Mg Tablet, 50 MG PO HS, (Reported) Ciprofloxacin HCl 500 Mg Tablet, 500 MG PO BID Prescribed by: JOBY NETTLES on 07/13/19657 Hydrocodone Bit/Acetaminophen 1 Tab Tab, 1 TAB PO Q4-6HR PRN for PAIN-MODERATE Prescribed by: DERECK POWELL on 08/16/18 1138 Hydrocodone Bit/Acetaminophen 1 Tab Tab, 1 TAB PO Q4-6HR PRN for PAIN-MODERATE Prescribed by: DERECK POWELL on 08/16/18 1144 Ketorolac Tromethamine 10 Mg Tablet, 10 MG PO Q6H Prescribed by: JOBY NETTLES on 07/13/19657 Levothyroxine Sodium 112 Mcg Tablet, 112 MCG PO DAILY, (Reported) Lisinopril 10 Mg Tablet, 10 MG PO DAILY, (Reported) Ondansetron 8 Mg Tab.rapdis, 8 MG PO Q6H Prescribed by: JOBY NETTLES on 07/13/19657 Oxycodone HCl/Acetaminophen 1 Each Tablet, 1 TAB PO Q4H PRN for PAIN-MODERATE Prescribed by: DERECK POWELL on 08/15/18 1026 Oxycodone HCl/Acetaminophen 1 Each Tablet, 1 EACH PO Q4H PRN for PAIN-SEVERE Prescribed by: JOBY NETTLES on 07/13/19657 Tamsulosin HCl 0.4 Mg Cap, 0.4 MG PO DAILY Prescribed by: JOBY NETTLES on 07/13/19657 Patient Home Medication List Home Medication List Reviewed: Yes (LEATHA GLORIA) Review of Systems Review of Systems Constitutional: No chills, No fever EENTM: No Blurred Vision, No Double Vision Respiratory: Denies Cough, Denies Shortness of Air Cardiovascular: Denies Chest Pain, Denies Lightheadedness Gastrointestinal: See HPI, Abdominal Pain; Denies Constipated, Denies Diarrhea; Nausea Genitourinary: Denies Burning, Denies Discharge Musculoskeletal: No back pain, No joint pain Psychiatric/Neurological: Denies Anxiety, Denies Depressed (LEATHA GLORIA) Past Psywjqv-Tgonhu-Gnvpwk Hx Patient Social History Alcohol Use: Occasionally Uses Alcohol Beverage of Choice: Other Recreational Drug Use: No Smoking Status: Former Smoker Type Used: Cigarettes Former Smoker, Quit: Jun 28, 2005 Recent Foreign Travel: No Contact w/Someone Who Travel: No Recent Hopitalizations: No (LEATHA GLORIA) Immunizations Up To Date Date of Influenza Vaccine: Aug 28, 2017 (LEATHA GLORIA) Seasonal Allergies Seasonal Allergies: Yes (LEATHA GLORIA) Past Medical History Heart Murmur, Hypertension Headaches /Migraines Reproductive Disorders: No Female Reproductive Disorders: Denies Sexually Transmitted Disease: No HIV/AIDS: No Gastroesophageal Reflux Loss of Vision: Bilateral Hearing Impairment: Denies Adverse Reaction/Blood Tranf: No (N/A) (LEATHA GLORIA) Physical Exam Vital Signs Vital Signs - First Documented 07/13/19 07/13/19 05:15 07:10 Temp 35.9 Pulse 76 Resp 18 B/P (MAP) 180/93 (122) Pulse Ox 100 O2 Delivery Room Air (SKYLER,JOBY K DO) Vital Signs Capillary Refill : (LEATHA GLORIA) Height/Weight/BMI Height: 5'5.00" Weight: 167lbs. 0.0oz. 75.422378id; 27.8 BMI Method: General Appearance: WD/WN, moderate distress (standing up, restless, pacing) HEENT: PERRL/EOMI, pharynx normal Neck: non-tender, normal inspection Respiratory: no respiratory distress, no accessory muscle use Cardiovascular: normal peripheral pulses, regular rate, rhythm Peripheral Pulses: 2+ Radial Pulses (R), 2+ Radial Pulses (L) Gastrointestinal: non tender, soft Back: normal inspection, no vertebral tenderness, CVA tenderness (R), other (right flank pain.) Neurologic/Psychiatric: alert, normal mood/affect (LEATHA GLORIA) Progress/Results/Core Measures Results/Orders Lab Results Laboratory Tests Test 07/13/19 05:18 07/13/19 05:25 Range/Units Urine Color YELLOW Urine Clarity CLEAR Urine pH 5 5-9 Urine Specific [place] 1.030 H 1.016-1.022 Urine Protein 2+ H NEGATIVE Urine Glucose (UA) NEGATIVE NEGATIVE Urine Ketones NEGATIVE NEGATIVE Urine Nitrite NEGATIVE NEGATIVE Urine Bilirubin NEGATIVE NEGATIVE Urine Urobilinogen NORMAL NORMAL MG/DL Urine Leukocyte Esterase 2+ H NEGATIVE Urine RBC (Auto) 5+ H NEGATIVE Urine RBC 25-50 H /HPF Urine WBC 0-2 /HPF Urine Squamous Epithelial Cells 2-5 /HPF Urine Crystals NONE /LPF Urine Bacteria FEW H /HPF Urine Casts NONE /LPF Urine Mucus SMALL H /LPF Urine Culture Indicated NO White Blood Count 15.6 H 4.3-11.0 10^3/uL Red Blood Count 4.59 4.35-5.85 10^6/uL Hemoglobin 13.3 11.5-16.0 G/DL Hematocrit 40 35-52 % Mean Corpuscular Volume 88 80-99 FL Mean Corpuscular Hemoglobin 29 25-34 PG Mean Corpuscular Hemoglobin Concent 33 32-36 G/DL Red Cell Distribution Width 14.3 10.0-14.5 % Platelet Count 331 130-400 10^3/uL Mean Platelet Volume 10.1 7.4-10.4 FL Neutrophils (%) (Auto) 80 H 42-75 % Lymphocytes (%) (Auto) 14 12-44 % Monocytes (%) (Auto) 5 0-12 % Eosinophils (%) (Auto) 1 0-10 % Basophils (%) (Auto) 0 0-10 % Neutrophils # (Auto) 12.5 H 1.8-7.8 X 10^3 Lymphocytes # (Auto) 2.2 1.0-4.0 X 10^3 Monocytes # (Auto) 0.7 0.0-1.0 X 10^3 Eosinophils # (Auto) 0.1 0.0-0.3 10^3/uL Basophils # (Auto) 0.0 0.0-0.1 10^3/uL Neutrophils % (Manual) 77 % Lymphocytes % (Manual) 20 % Monocytes % (Manual) 2 % Eosinophils % (Manual) 1 % Sodium Level 138 135-145 MMOL/L Potassium Level 3.8 3.6-5.0 MMOL/L Chloride Level 109 H 98-107 MMOL/L Carbon Dioxide Level 16 L 21-32 MMOL/L Anion Gap 13 5-14 MMOL/L Blood Urea Nitrogen 26 H 7-18 MG/DL Creatinine 0.97 0.60-1.30 MG/DL Estimat Glomerular Filtration Rate > 60 BUN/Creatinine Ratio 27 Glucose Level 148 H 70-105 MG/DL Calcium Level 9.3 8.5-10.1 MG/DL Corrected Calcium 9.2 8.5-10.1 MG/DL Total Bilirubin 0.2 0.1-1.0 MG/DL Aspartate Amino Transf (AST/SGOT) 16 5-34 U/L Alanine Aminotransferase (ALT/SGPT) 15 0-55 U/L Alkaline Phosphatase 59 40-136 U/L Total Protein 6.9 6.4-8.2 GM/DL Albumin 4.1 3.2-4.5 GM/DL (SKYLER,JOBY K DO) My Orders Orders - SKYLER,JOBY K DO Ct Abd/Pelvis Wo(Kidney Stone) (07/13/19 05:53) Acute Abd Series (07/13/19 05:53) Ed Iv/Invasive Line Start (07/13/19 05:54) Lactated Ringers (Lr 1000 Ml Iv Solution (07/13/19 05:54) Fentanyl Injection (Sublimaze Injection (07/13/19 05:54) Tamsulosin Capsule (Flomax Capsule) (07/13/19 06:45) Fentanyl Injection (Sublimaze Injection (07/13/19 07:00) (SKYLER,JOBY K DO) Medications Given in ED Current Medications Medications Dose Ordered Sig/Adriano Route Start Time Stop Time Status Last Admin Dose Admin Fentanyl Citrate 50 mcg ONCE ONCE IVP 07/13/19 07:00 07/13/19 07:01 DC 07/13/19 07:10 50 MCG Ketorolac Tromethamine 30 mg ONCE ONCE IVP 07/13/19 05:30 07/13/19 05:31 DC 07/13/19 05:29 30 MG Lactated Ringer's 1,000 ml @ 0 mls/hr Q0M ONCE IV 07/13/19 05:54 07/13/19 05:57 DC 07/13/19 06:00 999 MLS/HR Ondansetron HCl 8 mg ONCE ONCE IVP 07/13/19 05:30 07/13/19 05:31 DC 07/13/19 05:29 8 MG (JOBY NETTLES DO) Vital Signs/I&O 07/13/19 07/13/19 05:15 07:10 Temp 35.9 35.9 Pulse 76 72 Resp 18 18 B/P (MAP) 180/93 (122) 161/95 (122) Pulse Ox 100 O2 Delivery Room Air (JOBY NETTLES DO) Progress Progress Note : Time: 05:30 Progress Note Urine, basic labs, IV Toradol and Zofran. Suspect kidney stone, less likely appendix/diverticulitis/colitis/abdominal wall and lower back pain? (LEATHA GLORIA) Progress Note : Progress Note 0500--ASSUMED CARE FROM DR. GLORIA. GIVEN FENTANYL AND IV FLUIDS NAUSEA RESOLVED WITH ZOFRAN PAIN MUCH IMPROVED AT DISMISSAL (JOBY NETTLES DO) Diagnostic Imaging Comments ABDOMEN XRAYS--NO ACUTE PROCESS, PHLEBOLITHS VS CALCULI IN PELVIS CT ABDOMEN / PELVIS--5 MM CALCULUS IN RIGHT DISTAL URETER, 3 MM NON OBSTRUCTING STONE IN RIGHT KIDNEY, RIGHT HYDRONEPHROSIS PER RADIOLOGIST REPORT AT 0655 Reviewed: Reviewed by Me (JOBY NETTLES DO) Transfer of Care Time: 06:00 Care transferred to: Skyler (LEATHA GLORIA) Departure Impression Primary Impression: Right ureteral calculus Disposition: 01 HOME, SELF-CARE Condition: Improved Departure-Patient Inst. Referrals: LIZZY FELIX MD (PCP/Family) Primary Care Physician AVA BATEMAN MD Patient Instructions: How to Strain Your Urine, Kidney Stones (DC) Add. Discharge Instructions: LOTS OF WATER STRAIN ALL URINE--RETURN ANY STONES TO DR. BATEMAN'S OFFICE FOLLOW UP WITH DR. BATEMAN THIS WEEK FOR FURTHER CARE, RETURN TO ER IF WORSE All discharge instructions reviewed with patient and/or family. Voiced understanding. Scripts Ketorolac Tromethamine (Ketorolac Tromethamine) 10 Mg Tablet 10 MG PO Q6H for Pain, #15 TAB Prov: JOBY NETTLES DO 07/13/19 Ondansetron (Ondansetron Odt) 8 Mg Tab.rapdis 8 MG PO Q6H for Nausea/Vomiting, #10 TAB Prov: JOBY NETTLES DO 07/13/19 Oxycodone HCl/Acetaminophen (Oxycodone-Acetaminophen 5-325) 1 Each Tablet 1 EACH PO Q4H PRN for PAIN-SEVERE MDD 6, #20 TAB Prov: JOBY NETTLES DO 07/13/19 Tamsulosin HCl (Flomax) 0.4 Mg Cap 0.4 MG PO DAILY, #10 CAP Prov: JOBY NETTLES DO 07/13/19 Ciprofloxacin HCl (Cipro) 500 Mg Tablet 500 MG PO BID, #20 TAB Prov: JOBY NETTLES DO 07/13/19 LEATHA GLORIA Jul 13, 2019 05:31 JOBY NETTLES DO Jul 13, 2019 06:59
[2019-07-13 05:37] LABS: BASOPHILS % (AUTO) 0 % (0-10); EOSINOPHILS # (AUTO) 0.1 10^3/uL (0.0-0.3); EOSINOPHILS % (AUTO) 1 % (0-10); HEMATOCRIT 40 % (35-52); HEMOGLOBIN 13.3 G/DL (11.5-16.0); LYMPHOCYTES # (AUTO) 2.2 X 10^3 (1.0-4.0); LYMPHOCYTES % (AUTO) 14 % (12-44); MEAN CORPUSCULAR HEMOGLOBIN 29 PG (25-34); MEAN CORPUSCULAR HGB CONC 33 G/DL (32-36); MEAN CORPUSCULAR VOLUME 88 FL (80-99); MEAN PLATELET VOLUME 10.1 FL (7.4-10.4); MONOCYTES # (AUTO) 0.7 X 10^3 (0.0-1.0); MONOCYTES % (AUTO) 5 % (0-12); NEUTROPHILS # (AUTO) 12.5 X 10^3 (1.8-7.8); NEUTROPHILS % (AUTO) 80 % (42-75); PLATELET COUNT 331 10^3/uL (130-400); RED CELL DISTRIBUTION WIDTH 14.3 % (10.0-14.5); WHITE BLOOD COUNT 15.6 10^3/uL (4.3-11.0)
[2019-07-13 05:52] LABS: BACTERIA,URINE FEW /HPF; RBC,URINE 25-50 /HPF; WBC,URINE 0-2 /HPF
[2019-07-13] MEDS ORDERED: fentaNYL INJECTION 100 MCG/2 ML AMP IVP STA (05:54)
[2019-07-13] MEDS ORDERED: LACTATED RINGERS 1,000 ML IV ONE (05:54)
[2019-07-13 06:06] LABS: ALANINE AMINOTRANSFERASE 15 U/L (0-55); ALBUMIN 4.1 GM/DL (3.2-4.5); ALKALINE PHOSPHATASE 59 U/L (40-136); BILIRUBIN,TOTAL 0.2 MG/DL (0.1-1.0); BUN/CREATININE RATIO 27; CALCIUM 9.3 MG/DL (8.5-10.1); CARBON DIOXIDE 16 MMOL/L (21-32); CHLORIDE 109 MMOL/L (98-107); CREATININE SERUM 0.97 MG/DL (0.60-1.30); GFR ESTIMATED > 60; GLUCOSE 148 MG/DL (70-105); POTASSIUM 3.8 MMOL/L (3.6-5.0); SODIUM 138 MMOL/L (135-145); TOTAL PROTEIN 6.9 GM/DL (6.4-8.2)
[2019-07-13] MEDS ORDERED: TAMSULOSIN 0.4 MG (FLOMAX) CAP PO SCH (06:45)
--- NOTE | 2019-07-13 06:46 | Diagnostic Imaging Report ---
PROCEDURE: CT urinary tract, rule out kidney stone. TECHNIQUE: Multiple contiguous axial images were obtained through the abdomen and pelvis without the use of intravenous contrast. Auto Exposure Controls were utilized during the CT exam to meet ALARA standards for radiation dose reduction. INDICATION: Right flank pain. COMPARISON: None. FINDINGS: The heart is unremarkable. The included lung bases are clear. A calculus is seen in the distal right ureter measuring 0.5 cm (image 55 series 601). There is moderate right-sided hydroureteronephrosis. A nonobstructing calculus is seen in the mid right kidney measuring 0.3 cm. No evidence of nephrolithiasis or hydronephrosis is seen on the left. There is hyperattenuation throughout the liver relative to the spleen. No focal hepatic lesions. The gallbladder is unremarkable. The spleen, pancreas, adrenal glands, and kidneys have a normal appearance. There is no pathologically enlarged mesenteric or retroperitoneal adenopathy. The bowel loops are nondilated. There is no free fluid or free air. The osseous structures are age-appropriate. There is calcified aortic and iliac atherosclerotic plaque without aneurysm. The bladder is decompressed. There is no free air, loculated collection, or adenopathy in the pelvis. IMPRESSION: 1. Urolithiasis in the distal right ureter measuring 0.5 cm with associated moderate right-sided hydroureteronephrosis. A nonobstructing calculus is seen in the mid right kidney measuring 0.3 cm. Agree with overnight report. 2. Hyperattenuation throughout the liver. This appearance is nonspecific and can be seen with hemachromatosis, glycogen storage disease, and Dano's disease. Recommend correlation with LFTs. Dictated by: Dictated on workstation # [id number]
--- NOTE | 2019-07-13 06:49 | Diagnostic Imaging Report ---
PATIENT HISTORY: Right flank pain. TECHNIQUE: Four views of the chest and abdomen are obtained. COMPARISON: None. FINDINGS: The lung volumes are normal. No focal consolidation is seen. No large pleural effusion or pneumothorax is seen. The cardiomediastinal silhouette is normal in size and contour. No acute osseous abnormality is seen. No evidence of bowel obstruction. A mild to moderate amount of stool is seen in the colon. Calcifications are seen in the pelvis, which may represent calculi versus phleboliths. No large collections of free intraperitoneal air. The osseous structures are unremarkable. IMPRESSION: 1. No acute pleuroparenchymal process. 2. No bowel obstructions or large collections of free intraperitoneal air. 3. Focal calcifications within the pelvis, which may represent renal stones versus phleboliths. Dictated by: Dictated on workstation # [id number]
[2019-07-13 06:55] LABS: EOSINOPHILS % (MANUAL) 1 %; LYMPHOCYTES % (MANUAL) 20 %; MONOCYTES % (MANUAL) 2 %; NEUTROPHILS % (MANUAL) 77 %
[2019-07-13] MEDS ORDERED: CIPR-225 PO (06:58)
[2019-07-13] MEDS ORDERED: KETO10TA PO (06:58)
[2019-07-13] MEDS ORDERED: OXYC-471 PO (06:58)
[2019-07-13] MEDS ORDERED: TAMS0.4C98 PO (06:58)
[2019-07-13] MEDS ORDERED: ONDA8TAB13 PO (06:58)
[2019-07-13] MEDS ORDERED: fentaNYL INJECTION 100 MCG/2 ML AMP IVP ONE (07:00)
[2019-07-13 07:10] VITALS: BP 161/95
== END 2019-07-13 07:28 | disposition home or self-care (01) ==
LOC: EDUNIT# 05:08 → ER 05:10
DX: N13.2 Hydronephrosis with renal and ureteral calculous obstruction (principal); I10 Essential (primary) hypertension; G43.909 Migraine, unspecified, not intractable, without status migrainosus; K21.9 Gastro-esophageal reflux disease without esophagitis; Z88.5 Allergy status to narcotic agent; Z87.891 Personal history of nicotine dependence
CPT/HCPCS: 36415; 74022; 74176; 80053; 81000; 85007; 85027; 96361; 96374; 96375; 96376

== ENCOUNTER 2021-07-07 11:03 | Outpatient (CLI) | payer OTHER ==
[~2021-07-07 11:03] MED LIST changes: +CIPR-225 PO; +KETO10TA PO; -LISI10TA2 PO; +LISI10TA25 PO; +ONDA8TAB13 PO; +OXYC1TAB11 PO; +TMSL.4C PO
[2021-07-07 11:15] VITALS: BP 122/65
[2021-07-07] MEDS ORDERED: diphenhydrAMINE 50 MG/ML INJ (BENADRYL) IV PRN (11:45)
[2021-07-07] MEDS ORDERED: EPINEPHrine INJECTION 1 MG/ML AMP IM PRN (11:45)
[2021-07-07] MEDS ORDERED: CASIRIVIMAB/IMDEVIMAB 1,200 MG in NS (IVPB) 250 ML IV ONE (12:00)
[2021-07-07] MEDS ORDERED: ONDANSETRON 4 MG/2 ML (SDV) Z0FRAN IV PRN (12:00)
[2021-07-07] MEDS ORDERED: ACETAMINOPHEN 500 MG TAB (TYLENOL) PO PRN (12:00)
[2021-07-07 12:50] VITALS: BP 126/66
== END 2021-07-07 13:20 | disposition home or self-care (01) ==
LOC: INFUSION 11:03
PROVIDERS: ATTEND Nurse Practitioner Family
DX: Z23 Encounter for immunization (principal); U07.1 COVID-19